=== PATIENT | male | born 1950 | race Two or more races ===

== ENCOUNTER 2020-06-25 08:46 | Outpatient (REF) | payer MEDICARE, MEDICAID, SELFPAY ==
[2020-06-25 11:19] LABS: Hematocrit 39.4 % (42-52); Mean Corpuscular Hemoglobin 31.9 pg (27.0-33.0); Mean Corpuscular Volume 96.8 fL (80-98); Mean Platelet Volume 11.6 fL (9.4-12.4); Platelet Count 237 X10*3/uL (160-400); Red Blood Count 4.07 X10*6/uL (4.60-5.80); Red Cell Distribution Width 11.8 % (11.0-16.0)
[2020-06-25 12:03] LABS: Alanine Aminotransferase 21 U/L (0-40); Aspartate Amino Transferase 18 U/L (5-37); Cholesterol 117 mg/dL; Ferritin 216 ng/mL (20-250); HDL Cholesterol 36 mg/dL; LDL Cholesterol Calculated 68 mg/dl; Triglycerides 67 mg/dL
== END 2020-06-25 08:47 | disposition home or self-care (01) ==
LOC: HO.HMGCLDS 08:46
PROVIDERS: PCP Internal Medicine; Visit Provider Internal Medicine
DX: J31.0 Chronic rhinitis (principal); I25.10 Atherosclerotic heart disease of native coronary artery without angina pectoris; D50.9 Iron deficiency anemia, unspecified; I25.2 Old myocardial infarction
CPT/HCPCS: 36415; 80061; 82728; 84450; 84460; 85027

== ENCOUNTER 2020-12-24 08:40 | Outpatient (REF) | payer MEDICARE, MEDICAID, SELFPAY ==
[2020-12-24 11:18] LABS: MANUAL DIFF FLAG NO
[2020-12-24 11:41] LABS: Basophils Absolute Auto 0.1 X10*3/uL (0.0-0.2); Basophils Percent Auto 0.9 % (0-2); Eosinophils Absolute Auto 0.1 X10*3/uL (0.0-0.4); Eosinophils Percent Auto 2.1 % (0-4); Hematocrit 37.9 % (42-52); Hemoglobin 12.6 g/dl (14.0-18.0); Imm Gran Abs Auto 0.02 X10*3/uL (0.00-0.03); Imm Gran Pct Auto 0.3 % (0.0-0.4); Lymphocytes Absolute Auto 1.8 X10*3/uL (1.2-4.9); Lymphocytes Percent Auto 31.5 % (20-40); Mean Corpuscular HGB Conc 33.2 g/dl (31.0-36.0); Mean Corpuscular Hemoglobin 32.1 pg (27.0-33.0); Mean Corpuscular Volume 96.7 fL (80-98); Mean Platelet Volume 11.7 fL (9.4-12.4); Monocytes Absolute Auto 0.6 X10*3/uL (0.1-1.2); Monocytes Percent Auto 10.6 % (2-11); Neutrophils Absolute Auto 3.2 X10*3/uL (2.0-8.3); Neutrophils Percent Auto 54.6 % (45-73); Platelet Count 204 X10*3/uL (160-400); Red Blood Count 3.92 X10*6/uL (4.60-5.80); Red Cell Distribution Width 12.1 % (11.0-16.0); White Blood Count 5.8 X10*3/uL (4.8-10.8)
[2020-12-24 12:01] LABS: Alanine Aminotransferase 26 U/L (0-40); Aspartate Amino Transferase 18 U/L (5-37); Cholesterol 120 mg/dL; HDL Cholesterol 37 mg/dL; LDL Cholesterol Calculated 71 mg/dl; Triglycerides 64 mg/dL
[2020-12-27 22:17] LABS: Hemoglobin 12.6 g/dL (13.2-17.1); MCH 31.8 pg (27.0-33.0); RBC 3.96 Million/uL (4.20-5.80); RDW 12.6 % (11.0-15.0)
== END 2020-12-24 08:41 | disposition home or self-care (01) ==
LOC: HO.HMGCLDS 08:40
PROVIDERS: PCP Internal Medicine; Visit Provider Internal Medicine
DX: D64.9 Anemia, unspecified (principal); E78.5 Hyperlipidemia, unspecified
CPT/HCPCS: 36415; 80061; 83020; 84450; 84460; 85014; 85018; 85025; 85041

== ENCOUNTER 2022-04-12 09:13 | Outpatient (REF) | payer MEDICARE, MEDICAID, SELFPAY ==
[2022-04-12 11:17] LABS: MANUAL DIFF FLAG NO
[2022-04-12 11:37] LABS: Basophils Absolute Auto 0.1 X10*3/uL (0.0-0.2); Basophils Percent Auto 0.9 % (0-2); Eosinophils Absolute Auto 0.1 X10*3/uL (0.0-0.4); Eosinophils Percent Auto 2.3 % (0-4); Hematocrit 38.3 % (42.0-52.0); Hemoglobin 12.5 g/dl (14.0-18.0); Imm Gran Abs Auto 0.02 X10*3/uL (0.00-0.03); Imm Gran Pct Auto 0.3 % (0.0-0.4); Lymphocytes Absolute Auto 2.1 X10*3/uL (1.2-4.9); Lymphocytes Percent Auto 36.3 % (20-40); Mean Corpuscular HGB Conc 32.6 g/dl (31.0-36.0); Mean Corpuscular Hemoglobin 31.6 pg (27.0-33.0); Mean Platelet Volume 11.6 fL (9.4-12.4); Monocytes Absolute Auto 0.6 X10*3/uL (0.1-1.2); Monocytes Percent Auto 11.1 % (2-11); Neutrophils Absolute Auto 2.8 x10*3/uL (2.0-8.3); Neutrophils Percent Auto 49.1 % (45-73); Platelet Count 245 X10*3/uL (160-400); Red Blood Count 3.95 X10*6/uL (4.60-5.80); White Blood Count 5.8 X10*3/uL (4.8-10.8)
[2022-04-12 12:11] LABS: Alanine Aminotransferase 34 U/L (0-40); Anion Gap 10 (12-20); Aspartate Amino Transferase 22 U/L (5-37); Blood Urea Nitrogen 18 mg/dL (9-16); Calcium 9.3 mg/dL (8.4-10.2); Carbon Dioxide 30 mmol/L (22-29); Chloride 105 mmol/L (96-108); Cholesterol 103 mg/dL; Estimated Glomerular Filt Rate > 60; Glucose Fasting 111 mg/dL (60-99); HDL Cholesterol 29 mg/dL; LDL Cholesterol Calculated 59 mg/dl; Potassium 4.7 mmol/L (3.3-5.1); Sodium 140 mmol/L (135-145); Triglycerides 79 mg/dL; Vitamin D 25-OH Total 46.9 ng/mL (>30)
== END 2022-04-12 09:14 | disposition home or self-care (01) ==
LOC: HO.HMGCLDS 09:13
PROVIDERS: PCP Internal Medicine; Visit Provider Internal Medicine
DX: D50.9 Iron deficiency anemia, unspecified (principal); E78.5 Hyperlipidemia, unspecified
CPT/HCPCS: 36415; 80048; 80061; 82306; 84450; 84460; 85025

== ENCOUNTER 2022-10-10 09:09 | Outpatient (REF) | payer MEDICARE, MEDICAID, SELFPAY ==
[2022-10-10 11:14] LABS: MANUAL DIFF FLAG NO
[2022-10-10 11:34] LABS: Basophils Absolute Auto 0.1 X10*3/uL (0.0-0.2); Basophils Percent Auto 0.8 % (0-2); Eosinophils Absolute Auto 0.1 X10*3/uL (0.0-0.4); Eosinophils Percent Auto 1.7 % (0-4); Hematocrit 36.5 % (42.0-52.0); Hemoglobin 12.2 g/dl (14.0-18.0); Imm Gran Abs Auto 0.02 X10*3/uL (0.00-0.03); Imm Gran Pct Auto 0.3 % (0.0-0.4); Lymphocytes Absolute Auto 1.9 X10*3/uL (1.2-4.9); Lymphocytes Percent Auto 26.4 % (20-40); Mean Corpuscular HGB Conc 33.4 g/dl (31.0-36.0); Mean Corpuscular Hemoglobin 32.1 pg (27.0-33.0); Mean Corpuscular Volume 96.1 fL (80.0-98.0); Mean Platelet Volume 11.6 fL (9.4-12.4); Monocytes Absolute Auto 0.8 X10*3/uL (0.1-1.2); Neutrophils Absolute Auto 4.3 x10*3/uL (2.0-8.3); Neutrophils Percent Auto 59.8 % (45-73); Platelet Count 254 X10*3/uL (160-400); Red Cell Distribution Width 11.8 % (11.0-16.0); White Blood Count 7.2 X10*3/uL (4.8-10.8)
[2022-10-10 12:04] LABS: Alanine Aminotransferase 32 U/L (0-40); Anion Gap 9 (12-20); Aspartate Amino Transferase 23 U/L (5-37); Blood Urea Nitrogen 16 mg/dL (9-16); Calcium 9.2 mg/dL (8.4-10.2); Carbon Dioxide 27 mmol/L (22-29); Chloride 108 mmol/L (96-108); Cholesterol 91 mg/dL; Estimated Glomerular Filt Rate > 60; Glucose Fasting 104 mg/dL (60-99); HDL Cholesterol 32 mg/dL; Iron 85 mcg/dL (45-160); LDL Cholesterol Calculated 49 mg/dl; Percent Iron Saturation 37 % (15-50); Potassium 4.9 mmol/L (3.3-5.1); Sodium 139 mmol/L (135-145); Total Iron Binding Capacity 227 mcg/dL (228-428); Triglycerides 53 mg/dL; Unsaturated Iron Binding 142 ug/dL
[2022-10-10 12:23] LABS: PSA,Total (Free>4and<10) 1.87 ng/mL (0.00-4.00); Vitamin D 25-OH Total 49.8 ng/mL (>30)
== END 2022-10-10 09:10 | disposition home or self-care (01) ==
LOC: HO.HMGCLDS 09:09
PROVIDERS: PCP Internal Medicine; Visit Provider Internal Medicine
DX: Z12.5 Encounter for screening for malignant neoplasm of prostate (principal); D50.9 Iron deficiency anemia, unspecified; E78.5 Hyperlipidemia, unspecified; I25.10 Atherosclerotic heart disease of native coronary artery without angina pectoris; R73.01 Impaired fasting glucose; I10 Essential (primary) hypertension
CPT/HCPCS: 36415; 80048; 80061; 82306; 83540; 84153; 84450; 84460; 85025

== ENCOUNTER → 2022-11-01 07:50 | Outpatient (BNV) | payer MEDICARE, MEDICAID, SELFPAY | PROVIDERS: PCP Internal Medicine; Visit Provider Internal Medicine | DX: D64.9 Anemia, unspecified (principal) | CPT/HCPCS: 99203; 99213 ==

== ENCOUNTER 2023-03-23 08:48 | Outpatient (AMB) | payer MEDICARE, MEDICAID, SELFPAY ==
[2023-03-23 09:32] VITALS: BP 110/70; PULSE 74; TEMP 36.5; O2SAT 98; BMI 24.7
--- NOTE | 2023-03-23 09:32 | AM.OFFWIN_ITS ---
Intake Vital Signs 03/23/23 09:32 Height 5 ft 3 in Weight 139 lb 4 oz BMI 24.7 BP 110/70 Blood Pressure Location Rt brachial Position Sitting Pulse 74 Pulse Source Pulse Oximeter Temp 97.7 F Temp Source Temporal Artery Scan Pulse Oximetry (%) 98 Oxygen Delivery Method Room Air Intake Visit Reasons: EST/stuffy nose and congestion (lobby masked) Intake Note: pt is here for c.o stuffy nose and congestion Patient Tobacco Use Status: Never used Tobacco Allergies No Known Allergies Allergy (Verified 03/23/23 09:33) Do you need a note to return to daycare/school/sports/work: Yes HPI HPI Comments History of Present Illness Details This is a 72-year-old male who presents to the office today for sick visit. Patient complaining of sinus/nasal congestion, rhinorrhea, and productive cough with green-yellow sputum x 3 weeks. Patient and his deny any fevers or chills. He denies any chest pain or shortness of breath. He denies any abdominal pain or nausea/vomiting/diarrhea. [facility] Medical History (Updated 01/16/23 @ 11:53 by [employer] [place]) Anemia Essential hypertension Impaired fasting glucose CAD (coronary artery disease) Dyslipidemia Surgical History History of inguinal herniorrhaphy History of eye surgery History of cardiac catheterization Family History Father Myocardial infarction Daughter No problems noted. Daughter No problems noted. Sister No problems noted. Sister No problems noted. Sister No problems noted. Brother No problems noted. Brother No problems noted. Brother No problems noted. Brother No problems noted. Brother No problems noted. Brother No problems noted. Social History Household Members: Significant Other Housing: House Alcohol intake: never Patient Tobacco Use Status: Never used Tobacco e-Cigarette/Vaping Use: Never Used Second Hand Smoke Exposure: No service: No Current occupational status: retired Cognitive needs: No Hearing needs: No Vision needs: Yes Review of Systems Const All systems reviewed & are unremarkable except as noted in HPI and below Reports no additional complaints Eyes Reports no additional complaints ENT Reports no additional complaints Card Reports no additional complaints Resp Reports no additional complaints GI Reports no additional complaints Reports no additional complaints Musc Reports no additional complaints Skin/Breast Reports system reviewed and no additional complaints, except as documented Neuro Reports no additional complaints Psych Reports no additional complaints Endo Reports no additional complaints Jose Angel/Lymph Reports no additional complaints Aller/Immun Reports no additional complaints Physical Exam Vital Signs: Last Vital Signs Temp 97.7 F 03/23/23 09:32 Pulse 74 03/23/23 09:32 BP 110/70 03/23/23 09:32 Pulse Ox 98 03/23/23 09:32 Oxygen Delivery Method Room Air 03/23/23 09:32 BMI result Body Mass Index 24.7 Const Other: Vital signs reviewed. Constitutional: Non-toxic appearing. No acute distress. Well-developed and well-nourished. HEENT: Normocephalic and atraumatic. Tympanic membranes without erythema, edema, or bulging bilaterally. External auditory canals without erythema or edema bilaterally. Moist mucous membranes. No pharyngeal erythema or exudates. Skin: Warm and dry. No rashes or lesions noted. Neck: Full and painless range of motion. No cervical lymphadenopathy. Cardio: Regular rate and rhythm. No murmurs, gallops, or rubs. No lower extremity edema. No JVD. Pulmonary: No respiratory distress. No accessory muscle usage. Clear to auscultation bilaterally without wheezing, crackles, or rhonchi. Gastrointestinal: Soft, nontender, and nondistended in all 4 quadrants. Normoactive bowel sounds in all 4 quadrants. Genitourinary: No CVA tenderness. Musculoskeletal: Normal range of motion in joints throughout the body. No deformity or other signs of injury. Neuro: Alert and oriented x4. Cranial nerves 2-12 grossly intact. No focal deficits appreciated. Psych: Normal mood and affect. Assessment & Plan Assessment & Plan (1) Acute bacterial rhinosinusitis: Code(s): J01.90 - Acute sinusitis, unspecified; B96.89 - Other specified bacterial agents as the cause of diseases classified elsewhere Plan: This is a 72-year-old male presenting to the office complaining of persistent sinus congestion/rhinorrhea and productive cough x 3 weeks. Physical examination, his lungs are clear to auscultation bilaterally and he is overall nontoxic appearing. History and physical most consistent with an acute bacterial rhinosinusitis. Patient sent home on p.o. amoxicillin/clavulanate 875/125 mg twice daily x7 days. Recommended symptomatic management including rest, increased fluids, advil/tylenol for pain/fever, and over the counter throat lozenges/decongestants. Patient advised to follow up here or go to the emergency room for worsening/persistent symptoms such as shortness of breath, fever/chills, worsening sputum production, or hemoptysis. Patient verbalized understanding and is agreeable with the plan. Patient's was able to provide the history and translate for the patient. Medications: New amoxicillin-pot clavulanate 875-125 mg 1 tab PO BID 14 tabs 0RF Coding Level of Care Code Est Pt Level 3 (03628) Diagnoses Acute bacterial rhinosinusitis J01.90; B96.89
== END 2023-03-23 09:48 | disposition home or self-care (01) ==
PROVIDERS: PCP Internal Medicine; Visit Provider Physician Assistant Medical
DX: J01.90 Acute sinusitis, unspecified (principal); B96.89 Other specified bacterial agents as the cause of diseases classified elsewhere
CPT/HCPCS: 99213

== ENCOUNTER 2023-04-03 08:36 | Outpatient (REF) | payer MEDICARE, MEDICAID, SELFPAY ==
[2023-04-03 11:58] LABS: Alanine Aminotransferase 31 U/L (0-40); Anion Gap 9 (12-20); Aspartate Amino Transferase 25 U/L (5-37); Blood Urea Nitrogen 14 mg/dL (9-16); Calcium 9.4 mg/dL (8.4-10.2); Carbon Dioxide 28 mmol/L (22-29); Chloride 105 mmol/L (96-108); Cholesterol 111 mg/dL (<200); Estimated Glomerular Filt Rate > 60; Glucose Fasting 107 mg/dL (60-99); HDL Cholesterol 33 mg/dL (>40); LDL Cholesterol Calculated 58 mg/dL (<100); Potassium 4.8 mmol/L (3.3-5.1); Sodium 137 mmol/L (135-145); Triglycerides 100 mg/dL (<150)
== END 2023-04-03 08:37 | disposition home or self-care (01) ==
LOC: HO.HMGCLDS 08:36
PROVIDERS: PCP Internal Medicine; Visit Provider Internal Medicine
DX: I25.10 Atherosclerotic heart disease of native coronary artery without angina pectoris (principal); E78.5 Hyperlipidemia, unspecified; R73.01 Impaired fasting glucose; I10 Essential (primary) hypertension
CPT/HCPCS: 36415; 80048; 80061; 84450; 84460

== ENCOUNTER 2023-04-05 13:26 | Outpatient (AMB) | payer MEDICARE, MEDICAID, SELFPAY ==
[2023-04-05 13:39] VITALS: BP 90/52; PULSE 75; O2SAT 99; BMI 24.5
--- NOTE | 2023-04-05 13:39 | MHC.PC.OV ---
Vital Signs 04/05/23 13:39 Height 5 ft 3 in Weight 138 lb 2 oz BMI 24.5 BP 90/52 L Blood Pressure Location Rt brachial Position Sitting Pulse 75 Pulse Source Pulse Oximeter Pulse Oximetry (%) 99 Oxygen Delivery Method Room Air Intake Visit Reasons: 5M follow up lipids, htn, ifg Intake Note: Pt is here to follow up for his lab results Allergies No Known Allergies Allergy (Verified 04/10/23 09:32) Medication List - Last Reconciled 04/05/23 by Annmarie Deal MD albuterol sulfate 90 mcg/actuation 2 puffs inhalation Q6H PRN aspirin 325 mg PO DAILY atorvastatin 80 mg PO DAILY cholecalciferol (vitamin D3) (Vitamin D3) 25 mcg PO DAILY ferrous sulfate (FeroSul) 325 mg PO DAILY loratadine 10 mg PO DAILY metoprolol succinate ER 50 mg PO DAILY [id number] mcg (Centrum Silver Ultra Men's) 1 tab PO DAILY sacubitril-valsartan 24-26 mg (Entresto) 1 tab PO DAILY spironolactone 25 mg PO DAILY Tobacco use date assessed: 04/05/23 Fall risk assessment: No Falls in past year Last assessed Fall Risk: 04/05/23 Dental Screening Dental Screen Date: 04/05/23 Did you have a dental visit in the last 12 months?: Yes Did you have a dental problem in the last 6 months where you did not have access to dental care?: No Was dental information given to patient?: Patient has dentist HPI 5M follow up lipids, htn, ifg HPI Details 72-year-old male with hypertension, prediabetes, history of coronary artery disease s/p MS in 2016, has dyslipidemia, here today for his follow-up. He has been compliant with taking his medications currently taking atorvastatin 80 mg daily in addition to metoprolol succinate ER 50 mg daily and spironolactone 25 mg daily in addition to 225 mg of aspirin once a day. 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 He has been feeling well with no complaints at present time. Recent fasting labs showed results as follows below : Triglyceride 100 <150 mg/dL Desirable Triglyceride: less than 150 mg/dL Borderline High Triglyceride 150-199 mg/dL High Triglyceride: 200-499 mg/dL Very High Triglyceride: greater than or equal to 5OO mg/dL Cholesterol 111 <200 mg/dL Desirable Cholesterol: less than 200 mg/dL Borderline High Cholesterol: 200-239 mg/dL High Cholesterol: greater than 239 mg/dL LDL Calculated 58 <100 mg/dL Desirable LDL: less than 100 mg/dL Near Optimal/Above Optimal LDL: 110-129 mg/dL Borderline High LDL: 130-159 mg/dL High LDL: 160-189 mg/dL Very High LDL: greater than or equal to 190 mg/dL HDL 33 L >40 mg/dL [facility] Medical History (Updated 04/16/23 @ 01:20 by Annmarie Deal MD) History of ischemic cardiomyopathy History of MS (myocardial infarction) Chronic anemia Essential hypertension Impaired fasting glucose CAD (coronary artery disease) Dyslipidemia Surgical History (Updated 04/16/23 @ 01:22 by Annmarie Deal MD) History of permanent cardiac pacemaker placement History of inguinal herniorrhaphy History of eye surgery History of cardiac catheterization Family History Father Myocardial infarction Daughter No problems noted. Daughter No problems noted. Sister No problems noted. Sister No problems noted. Sister No problems noted. Brother No problems noted. Brother No problems noted. Brother No problems noted. Brother No problems noted. Brother No problems noted. Brother No problems noted. Social History Household Members: Significant Other Housing: House Alcohol intake: never Patient Tobacco Use Status: Never used Tobacco e-Cigarette/Vaping Use: Never Used Second Hand Smoke Exposure: No service: No Current occupational status: retired Cognitive needs: No Hearing needs: No Vision needs: Yes Questionnaire Thrive Questionnaire Date Thrive assessed: 10/12/22 ORTIZ-7 AMB Questionnaire ORTIZ-7 Date ORTIZ - 7 assessed: 10/12/22 Source: Developed by Drs. Juan Santoro, Janet Urias, Kervin Escalante and colleagues, with an educational missael from [employer]. Review of Systems Const Denies body aches, Denies fever(s), Denies headache(s), Reports malaise and Denies weakness Eyes Reports no additional complaints ENT Denies headache(s), Denies nasal congestion, Denies nasal discharge and Denies sore throat Card Denies chest pain, Denies palpitations and Denies dyspnea Resp Denies chest congestion, Denies cough, Denies dyspnea and Denies wheezing GI Denies abdominal pain, Denies melena, Denies hematochezia, Denies change in bowel habits and Denies heartburn Reports no additional complaints Musc Reports no additional complaints Skin/Breast Denies rash Neuro Denies headache(s) and Denies weakness Psych Reports no additional complaints Endo Denies palpitations Jose Angel/Lymph Denies easy bruising Aller/Immun Denies seasonal rhinorrhea and Denies wheezing Physical exam (Primary Care) Vital Signs: Last Vital Signs Pulse 75 04/05/23 13:39 BP 90/52 L 04/05/23 13:39 Pulse Ox 99 04/05/23 13:39 Oxygen Delivery Method Room Air 04/05/23 13:39 BMI result Body Mass Index 24.5 Tobacco/Smoking Status: Tobacco use Status Tobacco use date assessed 04/05/23 04/05/23 13:48 Patient Tobacco Use Status Never used Tobacco 04/05/23 13:40 e-Cigarette/Vaping Use Never Used 04/05/23 13:40 Thrive Assessment: Date of Thrive Assessment Date Thrive assessed 10/12/22 04/05/23 13:40 Const General: cooperative, comfortable and no acute distress Orientation/consciousness: patient oriented x3 Limitations: no limitations HENMT Ears: external ears normal, TM's normal bilaterally and EAC's normal General nose exam: Normal external nose present and No nasal discharge present Mouth: oropharynx normal and moist mucous membranes Eyes General: appearance normal, both eyes and all related structures Conjunctivae: conjunctivae normal Pupils: Equal, round and reactive pupils present EOM: EOMs intact bilaterally Neck Neck: Yes full ROM, Yes no lymphadenopathy and Yes supple Chest Chest palpation & inspection: Pacemaker present Resp Effort & Inspection: normal respiratory effort and able to speak in complete sentences Auscultation: clear to auscultation bilaterally Cardio Rate: regular rate Rhythm: regular rhythm Heart sounds: S1 normal heart sound present and S2 normal heart sound present GI Inspection: Yes normal to inspection Palpation (GI): Soft to palpation, nontender and no masses Auscultation: normal bowel sounds General: Yes no CVA tenderness Back/Spine/Pelvis Back: no CVA tenderness and No back tenderness Skin General skin exam: no rashes or lesions noted Neuro General: patient oriented x3, gait normal, tone normal, moves all extremities, Normal light touch and pain sensation and no focal motor deficits Cranial nerves: Yes Equal, round and reactive pupils present Cognition (Neuro): normal cognition Gait exam (Neuro): Normal gait present Motor exam (neuro): 5/5 motor strength present throughout Extrem General: Yes full ROM, Yes no joint enlargement, Yes no clubbing, cyanosis or edema, Yes no calf tenderness and Yes normal gait Results Reviewed Results Reviewed: ENTERED: 04/03/23 [facility] DR: ORDERED: Met Prof Fast, AST, ALT, Lipid Panel Test Result Flag Reference Site Sodium 137 135-145 mmol/L Potassium 4.8 3.3-5.1 mmol/L CL 105 96-108 mmol/L CO2 28 22-29 mmol/L Gap 9 L 12-20 BUN 14 9-16 mg/dL Creat 0.82 0.5-1.4 mg/dL EGFR > 60 NOTE: For -Hungarian individuals, multiply the result by 1.210. Chronic Kidney Disease: Estimated GFR < 60 mL/min/1.73m2 Severe Kidney Disease: Estimated GFR < 15 mL/min/1.73m2 FBS 107 H 60-99 mg/dL A fasting glucose from 100-125 mg/dl is considered impaired (pre-diabetes). CA 9.4 8.4-10.2 mg/dL AST (GOT) 25 5-37 U/L ALT (GPT) 31 0-40 U/L Triglyceride 100 <150 mg/dL Desirable Triglyceride: less than 150 mg/dL Borderline High Triglyceride 150-199 mg/dL High Triglyceride: 200-499 mg/dL Very High Triglyceride: greater than or equal to 5OO mg/dL Cholesterol 111 <200 mg/dL Desirable Cholesterol: less than 200 mg/dL Borderline High Cholesterol: 200-239 mg/dL High Cholesterol: greater than 239 mg/dL LDL Calculated 58 <100 mg/dL Desirable LDL: less than 100 mg/dL Near Optimal/Above Optimal LDL: 110-129 mg/dL Borderline High LDL: 130-159 mg/dL High LDL: 160-189 mg/dL Very High LDL: greater than or equal to 190 mg/dL HDL 33 L >40 mg/dL Desirable HDL: greater than 40 mg/dL Assessment and Plan Assessment & Plan (1) Essential hypertension: Code(s): I10 - Essential (primary) hypertension Plan: Blood pressure at goal of less than 130/80. Continue with current medication. Reinforced importance of following a low sodium diet, getting regular exercise, and lowering stress levels. (2) Impaired fasting glucose: Code(s): R73.01 - Impaired fasting glucose Plan: Your fasting blood sugars elevated above 100 mg/dL. Impaired glucose metabolism O2 at risk for developing diabetes mellitus type 2, as well as heart attack and stroke later on. Lifestyle changes at just weight loss, healthy eating habits, and regular exercise are important, and can prevent the progression to diabetes (3) Dyslipidemia: Code(s): E78.5 - Hyperlipidemia, unspecified Plan: Reviewed recent fasting lipid profile with patient with levels at goal . Continue with atorvastatin 80 mg daily , in addition to adherence to low-cholesterol diet and regular exercise, at least 30 minutes 3 to 4 times a week. Advised patient to make healthy food choices, eat more fruits, vegetables, whole grains, wild caught fish and low-fat dairy. Limit amount of meat and fried or fatty food products, as well as processed foods and fast foods. Coding Level of Care Code Est Pt Level 4 (07527) Diagnoses Essential hypertension I10 Impaired fasting glucose R73.01 Dyslipidemia E78.5
== END 2023-04-05 15:25 | disposition home or self-care (01) ==
LOC: HO.HMGC 13:26
PROVIDERS: PCP Internal Medicine; Visit Provider Internal Medicine
DX: I10 Essential (primary) hypertension (principal); R73.01 Impaired fasting glucose; E78.5 Hyperlipidemia, unspecified
CPT/HCPCS: 99214

== ENCOUNTER 2023-04-10 08:54 | Outpatient (AMB) | payer MEDICARE, MEDICAID, SELFPAY ==
--- NOTE | 2023-04-10 09:00 | MHC.PC.OV ---
Vital Signs 04/10/23 09:01 Height 5 ft 3 in Weight 137 lb BMI 24.3 BP 100/62 Blood Pressure Location Lt brachial Position Sitting Pulse 74 Pulse Source Pulse Oximeter Pulse Oximetry (%) 100 Oxygen Delivery Method Room Air Intake Visit Reasons: Pre Op per Toyin Intake Note: Pt is here for a pre-op for Vitrectomy of the left eye Allergies No Known Allergies Allergy (Verified 04/10/23 09:32) Medication List - Last Reconciled 04/10/23 by Annmarie Deal MD albuterol sulfate 90 mcg/actuation 2 puffs inhalation Q6H PRN aspirin 325 mg PO DAILY atorvastatin 80 mg PO DAILY cholecalciferol (vitamin D3) (Vitamin D3) 25 mcg PO DAILY ferrous sulfate (FeroSul) 325 mg PO DAILY loratadine 10 mg PO DAILY metoprolol succinate ER 50 mg PO DAILY [id number]-bqicsg [id number] mcg (Centrum Silver Ultra Men's) 1 tab PO DAILY sacubitril-valsartan 24-26 mg (Entresto) 1 tab PO DAILY spironolactone 25 mg PO DAILY Tobacco use date assessed: 04/10/23 Fall risk assessment: No Falls in past year Last assessed Fall Risk: 04/10/23 Dental Screening Dental Screen Date: 04/10/23 Did you have a dental visit in the last 12 months?: Yes Did you have a dental problem in the last 6 months where you did not have access to dental care?: No Was dental information given to patient?: Patient has dentist HPI Pre Op per Toyin HPI Details 72-year-old male with coronary artery disease s/p inferoposterior [place] in 2012 with [place] to proximal and mid RCA, history of ischemic cardiomyopathy treated medically in 2016, prediabetes, hypertension, dyslipidemia, chronic normocytic anemia and history of sinus node dysfunction s/p pacemaker placed December 2022,here today for preoperative exam for vitrectomy OS, scheduled on 05/09/2023, requested by Dr. David Arredondo. At present he has been feeling well, denies chest pain, shortness of breath, dizziness, palpitations, orthopnea, paroxysmal nocturnal dyspnea, dizziness, palpitations, he has not been walking outdoors for at least a mi and a half and has been feeling more energetic. [facility] [place] Medical History (Updated 04/16/23 @ 01:20 by Annmarie Deal MD) History of ischemic cardiomyopathy History of [place] (myocardial infarction) Chronic anemia Essential hypertension Impaired fasting glucose CAD (coronary artery disease) Dyslipidemia Surgical History (Updated 04/16/23 @ 01:22 by Annmarie Deal MD) History of permanent cardiac pacemaker placement History of inguinal herniorrhaphy History of eye surgery History of cardiac catheterization Family History Father Myocardial infarction Daughter No problems noted. Daughter No problems noted. Sister No problems noted. Sister No problems noted. Sister No problems noted. Brother No problems noted. Brother No problems noted. Brother No problems noted. Brother No problems noted. Brother No problems noted. Brother No problems noted. Social History Household Members: Significant Other Housing: House Alcohol intake: never Patient Tobacco Use Status: Never used Tobacco e-Cigarette/Vaping Use: Never Used Second Hand Smoke Exposure: No service: No Current occupational status: retired Cognitive needs: No Hearing needs: No Vision needs: Yes Questionnaire PHQ-9 Over the last 2 weeks, how often have you been bothered by any of the following problems? Depression Screening Interpretation: Negative Depression Screening Done: Yes Source: Developed by Drs. Juan Santoro, Kervin Donnelly and colleagues, with an educational missael from [employer]. Thrive Questionnaire Date Thrive assessed: 10/12/22 ORTIZ-7 AMB Questionnaire ORTIZ-7 Date ORTIZ - 7 assessed: 10/12/22 Source: Developed by Drs. Juan Santoro, Kervin Donnelly and colleagues, with an educational missael from [employer]. Review of Systems Const Denies body aches, Denies fever(s), Denies headache(s), Reports malaise and Denies weakness Eyes Reports no additional complaints ENT Denies headache(s), Denies nasal congestion, Denies nasal discharge and Denies sore throat Card Denies chest pain, Denies palpitations and Denies dyspnea Resp Denies chest congestion, Denies cough, Denies dyspnea and Denies wheezing GI Denies abdominal pain, Denies melena, Denies hematochezia, Denies change in bowel habits and Denies heartburn Reports no additional complaints Musc Reports no additional complaints Skin/Breast Denies rash Neuro Denies headache(s) and Denies weakness Psych Reports no additional complaints Endo Denies palpitations Jose Angel/Lymph Denies easy bruising Aller/Immun Denies seasonal rhinorrhea and Denies wheezing Physical exam (Primary Care) Vital Signs: Last Vital Signs Pulse 74 04/10/23 09:01 BP 100/62 04/10/23 09:01 Pulse Ox 100 04/10/23 09:01 Oxygen Delivery Method Room Air 04/10/23 09:01 BMI result Body Mass Index 24.3 Tobacco/Smoking Status: Tobacco use Status Tobacco use date assessed 04/10/23 04/10/23 09:15 Patient Tobacco Use Status Never used Tobacco 04/10/23 09:02 e-Cigarette/Vaping Use Never Used 04/10/23 09:02 Depression Screening Interpretation: Negative Thrive Assessment: Date of Thrive Assessment Date Thrive assessed 10/12/22 04/10/23 09:02 Const General: cooperative, comfortable and no acute distress Orientation/consciousness: patient oriented x3 Limitations: no limitations HENMT Ears: external ears normal, TM's normal bilaterally and EAC's normal General nose exam: Normal external nose present and No nasal discharge present Mouth: oropharynx normal and moist mucous membranes Eyes General: appearance normal, both eyes and all related structures Conjunctivae: conjunctivae normal Pupils: Equal, round and reactive pupils present EOM: EOMs intact bilaterally Neck Neck: Yes full ROM, Yes no lymphadenopathy and Yes supple Resp Effort & Inspection: normal respiratory effort and able to speak in complete sentences Auscultation: clear to auscultation bilaterally Cardio Rate: regular rate Rhythm: regular rhythm Heart sounds: S1 normal heart sound present and S2 normal heart sound present GI Inspection: Yes normal to inspection Palpation (GI): Soft to palpation, nontender and no masses Auscultation: normal bowel sounds General: Yes no CVA tenderness Back/Spine/Pelvis Back: no CVA tenderness and No back tenderness Skin General skin exam: no rashes or lesions noted Neuro General: patient oriented x3, gait normal, tone normal, moves all extremities, Normal light touch and pain sensation and no focal motor deficits Cranial nerves: Yes Equal, round and reactive pupils present Cognition (Neuro): normal cognition Gait exam (Neuro): Normal gait present Motor exam (neuro): 5/5 motor strength present throughout Extrem General: Yes full ROM, Yes no joint enlargement, Yes no clubbing, cyanosis or edema, Yes no calf tenderness and Yes normal gait Psych Appearance: grossly normal and well kempt Mental Status: mental status grossly normal Speech and movement: Normal speech and movement present Affect: normal affect Attitude: cooperative Thought process: Normal thought process present Thought content: Normal thought content present Results Reviewed Results Reviewed: Name: Kelton Salas Age/Sex: 72/M : 1950 Unit#: [id number] Attend Dr: Annmarie Deal MD Re04/03/23 Status: DEP REF Location: [facility] Disch: SPEC : [id number] AKHIL: 04/03/23 STATUS: COMP REQ : [id number] RECD: 04/03/[address]: Annmarie Deal MD COMP: 04/03/23 ENTERED: 04/03/[address] [facility] [address]: ORDERED: Met Prof Fast, AST, ALT, Lipid Panel Test Result Flag Reference Site Sodium 137 135-145 mmol/L Potassium 4.8 3.3-5.1 mmol/L CL 105 96-108 mmol/L CO2 28 22-29 mmol/L Gap 9 L 12-20 BUN 14 9-16 mg/dL Creat 0.82 0.5-1.4 mg/dL EGFR > 60 NOTE: For -[place] individuals, multiply the result by 1.210. Chronic Kidney Disease: Estimated GFR < 60 mL/min/1.73m2 Severe Kidney Disease: Estimated GFR < 15 mL/min/1.73m2 FBS 107 H 60-99 mg/dL A fasting glucose from 100-125 mg/dl is considered impaired (pre-diabetes). CA 9.4 8.4-10.2 mg/dL AST (GOT) 25 5-37 U/L ALT (GPT) 31 0-40 U/L Triglyceride 100 <150 mg/dL Desirable Triglyceride: less than 150 mg/dL Borderline High Triglyceride 150-199 mg/dL High Triglyceride: 200-499 mg/dL Very High Triglyceride: greater than or equal to 5OO mg/dL Cholesterol 111 <200 mg/dL Desirable Cholesterol: less than 200 mg/dL Borderline High Cholesterol: 200-239 mg/dL High Cholesterol: greater than 239 mg/dL LDL Calculated 58 <100 mg/dL Desirable LDL: less than 100 mg/dL Near Optimal/Above Optimal LDL: 110-129 mg/dL Borderline High LDL: 130-159 mg/dL High LDL: 160-189 mg/dL Very High LDL: greater than or equal to 190 mg/dL HDL 33 L >40 mg/dL Desirable HDL: greater than 40 mg/dL Note: This HDL assay may give artificially low results in patients with liver disease. Assessment and Plan Assessment & Plan (1) Preoperative examination: Code(s): Z01.818 - Encounter for other preprocedural examination Plan: Pt is a 72 year old male here for pre-op clearance for left vitrectomy, on 05/09/[address] Arredondo. Pt has been seen by cardiology for cardiac clearance. He does not have any pulmonary or cardiac symptoms. Pre-operative exam is unremarkable.. He had recent fasting labs and EKG done. Patient with low cardiac risk index for proposed surgery (2) Essential hypertension: Code(s): I10 - Essential (primary) hypertension Plan: Blood pressure at goal of less than 130/80. Continue with current medication. Reinforced importance of following a low sodium diet, getting regular exercise, and lowering stress levels. (3) History of ischemic cardiomyopathy: Code(s): Z86.79 - Personal history of other diseases of the circulatory system Plan: Currently on Entresto, metoprolol, , and spironolactone. Currently followed by [facility] cardiology (4) Impaired fasting glucose: Code(s): R73.01 - Impaired fasting glucose Plan: Your fasting blood sugars elevated above 100 mg/dL. Impaired glucose metabolism O2 at risk for developing diabetes mellitus type 2, as well as heart attack and stroke later on. Lifestyle changes at just weight loss, healthy eating habits, and regular exercise are important, and can prevent the progression to diabetes (5) CAD (coronary artery disease): Code(s): I25.10 - Atherosclerotic heart disease of [place] coronary artery without angina pectoris Qualifiers: Coronary Disease-Associated Artery/Lesion type: [place] artery [place] vs. transplanted heart: [place] heart Associated angina: without angina Qualified Code(s): I25.10 - Atherosclerotic heart disease of [place] coronary artery without angina pectoris Plan: Continued on aspirin 325 mg once a day and metoprolol succinate ER 50 mg daily (6) Dyslipidemia: Code(s): E78.5 - Hyperlipidemia, unspecified Plan: Reviewed recent fasting lipid profile with patient with levels at goal . Continue with atorvastatin 80 mg daily , in addition to adherence to low-cholesterol diet and regular exercise, at least 30 minutes 3 to 4 times a week. Advised patient to make healthy food choices, eat more fruits, vegetables, whole grains, wild caught fish and low-fat dairy. Limit amount of meat and fried or fatty food products, as well as processed foods and fast foods. Follow-up scheduled with repeat fasting lipid panel in months. (7) Chronic anemia: Code(s): D64.9 - Anemia, unspecified Plan: No further treatment at present time, already been evaluated by Hematology, currently up-to-date on screening colonoscopy. He has no ongoing symptoms to suggest underlying malignancy. Given the chronicity of anemia without significant decline over the years, this is probably benign and can be monitored for now. (8) History of permanent cardiac pacemaker placement: Comment: 01/05/[address] Angel cano due to sinus bradycardia with pauses Code(s): Z95.0 - Presence of cardiac pacemaker Plan: Currently followed by [facility] cardiology Coding Level of Care Code Est Pt Level 4 (91096) Diagnoses Preoperative examination Z01.818 Essential hypertension I10 History of ischemic cardiomyopathy Z86.79 Impaired fasting glucose R73.01 Coronary artery disease involving [place] coronary artery of [place] heart without angina pectoris I25.10 Coronary Disease-Associated Artery/Lesion type: [place] artery [place] vs. transplanted heart: [place] heart Associated angina: without angina Dyslipidemia E78.5 Chronic anemia D64.9 History of permanent cardiac pacemaker placement Z95.0
[2023-04-10 09:01] VITALS: BP 100/62; PULSE 74; O2SAT 100; BMI 24.3
== END 2023-04-10 09:55 | disposition home or self-care (01) ==
PROVIDERS: PCP Internal Medicine; Visit Provider Internal Medicine
DX: Z01.818 Encounter for other preprocedural examination (principal); I10 Essential (primary) hypertension; Z86.79 Personal history of other diseases of the circulatory system; R73.01 Impaired fasting glucose; I25.10 Atherosclerotic heart disease of native coronary artery without angina pectoris; E78.5 Hyperlipidemia, unspecified; D64.9 Anemia, unspecified; Z95.0 Presence of cardiac pacemaker
CPT/HCPCS: 99214

== ENCOUNTER 2024-02-29 11:52 | Outpatient (REF) | payer MEDICARE, MEDICAID, SELFPAY ==
[2024-03-01 09:50] LABS: Adenovirus PCR Not Detected (Not Detect.); Bordetella parapertussis PCR Not Detected (Not Detect.); Bordetella pertussis PCR Not Detected (Not Detect.); Chlamydia pneumoniae PCR Not Detected (Not Detect.); Coronavirus 229E PCR Not Detected (Not Detect.); Coronavirus HKU1 PCR Not Detected (Not Detect.); Coronavirus NL63 PCR Not Detected (Not Detect.); Coronavirus OC43 PCR Not Detected (Not Detect.); Human metapneumovirus PCR Not Detected (Not Detect.); Influenza A PCR Not Detected (Not Detect.); Influenza B PCR Not Detected (Not Detect.); Mycoplasma pneumoniae PCR Not Detected (Not Detect.); Parainfluenza 1 PCR Not Detected (Not Detect.); Parainfluenza 2 PCR Not Detected (Not Detect.); Parainfluenza 3 PCR Not Detected (Not Detect.); Parainfluenza 4 PCR Not Detected (Not Detect.); RSV PCR Not Detected (Not Detect.); Rhino/Enterovirus PCR Not Detected (Not Detect.)
[2024-03-01 10:27] LABS: SARS-CoV-2 PCR Not Detected (Not Detect.)
== END 2024-02-29 11:53 | disposition home or self-care (01) ==
LOC: HO.LAB 11:52
PROVIDERS: PCP Internal Medicine; Visit Provider Physician Assistant
DX: J06.9 Acute upper respiratory infection, unspecified (principal); R05.9 Cough, unspecified; R68.89 Other general symptoms and signs; R51.9 Headache, unspecified; I10 Essential (primary) hypertension
CPT/HCPCS: 87633; 99212

== ENCOUNTER 2024-02-29 11:52 | Outpatient (AMB) | payer MEDICARE, MEDICAID, SELFPAY ==
--- NOTE | 2024-02-29 12:46 | AM.OFFWIN_ITS ---
Intake Vital Signs 02/29/24 12:47 Height 5 ft 3 in Weight 139 lb BMI 24.6 BP 110/68 Blood Pressure Location Rt brachial Position Sitting Pulse 80 Pulse Source Pulse Oximeter Temp 98.1 F Temp Source Oral Pulse Oximetry (%) 97 Oxygen Delivery Method Room Air Intake Visit Reasons: EP sinus, coughing, sore thoat Intake Note: sinus pressure, loss of voice, cough, mucus which has been going for about 2 days Patient Tobacco Use Status: Never used Tobacco Allergies No Known Allergies Allergy (Verified 02/29/24 12:48) Do you need a note to return to daycare/school/sports/work: No HPI HPI Comments History of Present Illness Details Patient is a 73-year-old male complaining of 2 days of a productive cough with yellow mucus and head congestion. He denies any fevers, shortness of breath, headaches, sinus pain or ear pain. He denies a history of asthma or COPD. He did not test at home for COVID. He has been using Robitussin without much improvement in his symptoms. His tells me the cough is keeping him up at night. [facility] Medical History (Updated 02/29/24 @ 13:11 by Tonya Bentley PA-C) History of ischemic cardiomyopathy History of [place] (myocardial infarction) Chronic anemia Essential hypertension Impaired fasting glucose CAD (coronary artery disease) Dyslipidemia Surgical History (Updated 05/29/23 @ 10:18 by Rosalia Jung MD) History of permanent cardiac pacemaker placement History of inguinal herniorrhaphy History of eye surgery History of cardiac catheterization Family History Father Myocardial infarction Daughter No problems noted. Daughter No problems noted. Sister No problems noted. Sister No problems noted. Sister No problems noted. Brother No problems noted. Brother No problems noted. Brother No problems noted. Brother No problems noted. Brother No problems noted. Brother No problems noted. Social History Household Members: Significant Other Housing: House Alcohol intake: never Patient Tobacco Use Status: Never used Tobacco e-Cigarette/Vaping Use: Never Used Second Hand Smoke Exposure: No service: No Current occupational status: retired Cognitive needs: No Hearing needs: No Vision needs: Yes Review of Systems Const All systems reviewed & are unremarkable except as noted in HPI and below Physical Exam Vital Signs: Last Vital Signs Temp 98.1 F 02/29/24 12:47 Pulse 80 02/29/24 12:47 BP 110/68 02/29/24 12:47 Pulse Ox 97 02/29/24 12:47 Oxygen Delivery Method Room Air 02/29/24 12:47 BMI result Body Mass Index 24.6 Const General: cooperative, healthy appearing, comfortable and no acute distress Orientation/consciousness: patient oriented x3 Limitations: no limitations HEENT Head: Yes normal to inspection Ears: hearing grossly normal bilaterally, external ears normal and TM's normal bilaterally General nose exam: Normal external nose present, Normal nares present and No nasal discharge present Face and sinus: Yes normal facial exam and Yes sinuses nontender Mouth: Normal oral and palatal mucosa present and moist mucous membranes Throat: Yes tonsils normal, Yes uvula midline and Yes posterior oropharynx abnormal (Erythema) Eyes General: appearance normal, both eyes and all related structures Neck Neck: Yes normal visual inspection Resp Effort & Inspection: normal respiratory effort, able to speak in complete sentences, no respiratory distress, not tachypneic, no tripod positioning and no use of accessory muscles Auscultation: clear to auscultation bilaterally Cardio Rate: regular rate Rhythm: regular rhythm Heart sounds: normal S1 and S2 Skin General skin exam: no rashes or lesions noted Neuro General: patient oriented x3 Extrem General: Yes normal to inspection and Yes no clubbing, cyanosis or edema Assessment & Plan Assessment & Plan (1) URI (upper respiratory infection): Code(s): J06.9 - Acute upper respiratory infection, unspecified Qualifiers: URI type: unspecified URI Qualified Code(s): J06.9 - Acute upper respiratory infection, unspecified Plan: Vital signs are stable, patient well-appearing, lung sounds are clear, no indic ation for a chest x-ray, I did send a respiratory pathogen panel. And I will send some codeine cough syrup so the patient can get some sleep at night. Recommended continuing with Robitussin in ceot-sou-ensuamt medications to treat his symptoms. Plan See above Orders: Orders Resp Pathogen Panel - [facility] Today J06.9 - Acute upper respiratory infection, unspecified Medications: New codeine-guaifenesin 10-100 mg/5 mL 10 mL PO Q4-6H PRN 120 mL 0RF cold symptoms Coding Level of Care Code Est Pt Level 3 (49392) Diagnoses Upper respiratory tract infection, unspecified type J06.9 URI type: unspecified URI
[2024-02-29 12:47] VITALS: BP 110/68; PULSE 80; TEMP 36.7; O2SAT 97; BMI 24.6
== END 2024-02-29 13:10 | disposition home or self-care (01) ==
PROVIDERS: PCP Internal Medicine; Visit Provider Physician Assistant
DX: J06.9 Acute upper respiratory infection, unspecified (principal)

== ENCOUNTER 2024-06-02 11:27 | Outpatient (AMB) | payer MEDICARE, MEDICAID, SELFPAY ==
--- NOTE | 2024-06-02 11:54 | A.OFFVIS_ITS ---
Intake Vital Signs 06/02/24 12:09 Height 5 ft 3 in Weight 140 lb BMI 24.8 BP 104/60 Blood Pressure Location Lt brachial Position Sitting Respiration 16 Pulse 69 Pulse Source Pulse Oximeter Temp 98.0 F Temp Source Oral Pulse Oximetry (%) 98 Oxygen Delivery Method Room Air Intake Visit Reasons: AWV G0438 Intake Note: Pt is here today for his AWV: Last colonoscopy 03/01/16 Allergies No Known Allergies Allergy (Verified 06/02/24 12:36) Medication List - Last Reconciled 06/02/24 by Annmarie Deal MD aspirin 325 mg PO DAILY atorvastatin 80 mg PO DAILY cholecalciferol (vitamin D3) (Vitamin D3) 25 mcg PO DAILY codeine-guaifenesin 10-100 mg/5 mL 10 mL PO Q4-6H PRN loratadine 10 mg PO DAILY metoprolol succinate ER 50 mg PO DAILY gj-[id number]-[id number]-nrdibta-nlelii [id number] mcg (Centrum Silver Ultra Men's) 1 tab PO DAILY sacubitril-valsartan 24-26 mg (Entresto) 1 tab PO DAILY spironolactone 25 mg PO DAILY HPI AWV G0438 HPI Details AWV ? 74 year old male with history coronary artery disease, history of isch emic cardiomyopathy, status post pacemaker placement, chronic anemia, hypertension, impaired fasting glucose and dyslipidemia, presents for his? Annual Wellness Visit, initial visit.? He is up-to-date with his screening colonoscopy done by Dr. Mullen last 03/01/2016, due again next year. Last PSA level drawn 10/10/2022 was within normal limits, last lipid panel and fasting blood sugar Romario 04/03/2023 showed normal lipids except for low HDL cholesterol at 33 mg/dL and fasting glucose in the prediabetic range at 107 mg/dL. He is up-to-date with his flu vaccine, Tdap pneumonia vaccination, but has not yet had his Shingrix vaccination and does not want to get a COVID booster. ? Medical / Social History Reviewed? Past Medical History ?Yes . ? [place]ak of Care / Care Team list updated ?Yes . ? Surgical/Hospitalization History ?Yes . ? Current Medications (including OTC and supplements) ?Yes . ? Family History ?Yes . ? Tobacco Control form ?Yes . ? AUDIT-C (Alcohol use) form ?Yes . ? Illicit drug use in Social History ?Yes . ? Current diagnosis of depression? ?No ? Appropriate PHQ2/PHQ9 completed ?Yes . ? Data entered by ?[employer] and reviewed by provider ? Fall Risk ? Fall History? Have you had any falls with injury in the past year? ?No . ? Have you had two or more falls in the past year? ?No . ? Fall Risk Assessment: ?No falls in the past year . ? HRA filled out by the patient, reviewed by Provider and scanned. ? AWV ? Balance? Romberg negative ? Tandem walk ?Yes . ? Walk and Turn ?Yes . ? Rise from sit to stand ?Yes . ?Vision? Corrective lens ?history of cataract surgery with intra-ocular lens placed ? Vision screen ? Up-to-date, sees Dr Valdez ?Hearing? Whisper test ?pass . ?Written Plan?Completed. See Patient Documents.? HPI Comments History of Present Illness Details Patient has also been complaining of breast pain mainly in retroareolar area, which has been present now for the last several weeks. Denies any history of trauma, no nipple discharge He is also here for follow-up on his lipids, currently on atorvastatin 80 mg daily, and follow-up on hypertension and anemia. Has been feeling well, with no complaints at present time [facility] Medical History Nipple pain History of ischemic cardiomyopathy History of CT (myocardial infarction) Chronic anemia Essential hypertension Impaired fasting glucose CAD (coronary artery disease) Dyslipidemia Surgical History History of permanent cardiac pacemaker placement History of inguinal herniorrhaphy History of eye surgery History of cardiac catheterization Family History Father Myocardial infarction Daughter No problems noted. Daughter No problems noted. Sister No problems noted. Sister No problems noted. Sister No problems noted. Brother No problems noted. Brother No problems noted. Brother No problems noted. Brother No problems noted. Brother No problems noted. Brother No problems noted. Social History Household Members: Significant Other Housing: House Alcohol intake: never Patient Tobacco Use Status: Never used Tobacco e-Cigarette/Vaping Use: Never Used Second Hand Smoke Exposure: No service: No Current occupational status: retired Cognitive needs: No Hearing needs: No Vision needs: Yes Questionnaire Medicare Wellness Checkup [age] What gender do you identify with?: male During the past 4 weeks, how much have you been bothered by emotional problems such as feeling anxious, depressed, irritable, sad or downhearted, and blue?: not at all During the past 4 weeks, has your physical & emotional health limited your social activities with family, friends, neighbors, or groups?: not at all During the past 4 weeks, how much bodily pain have you generally had?: very mild pain During the past 4 weeks, was someone available to help you if you needed & wanted help?: yes, as much as I wanted During the past 4 weeks, what was the hardest physical activity you could do for at least 2 minutes?: light Can you get to places out of walking distance without help? (For eg., can you travel alone on buses, taxis or drive your car?): Yes Can you go shopping for groceries or clothes without someone's help?: No Can you prepare your own meals?: No Can you do your housework without help?: No Because of any health problems, do you need the help of another person with your personal care needs such as eating, bathing, dressing or getting around the house?: No Can you handle your own money without help?: Yes During the past 4 weeks, how would you rate your health in general?: good During the past 4 weeks how have things been going for you?: pretty well Are you having difficulties driving your car?: no Do you always fasten your seat belt when you are in a car?: yes, usually During past 4 weeks, have you been bothered by the following: never: Problems using the telephone? and sometimes: Falling or dizzy when standing up, Sexual problems?, Trouble eating well?, Teeth or denture problems? and Tiredness or fatigue? Have you fallen 2 or more times in the past year?: No Are you afraid of falling?: No Are you a smoker?: no During the past 4 weeks, how many drinks of wine, beer, or other alcoholic beverages did you have?: no alcohol at all Do you exercise for about 20 minutes 3 or more times a week?: yes, most of the time Have you been given information to help with the following?: yes: Keeping track of your medications? and no: Hazards in your house that might hurt you? How often do you have trouble taking medicines the way you have been told to take them?: I always take medicine as prescribed How confident are you that you can control & manage most of your health problems?: very confident What is your race?: or origin or descent Mini Mental State Exam (MMSE) Orientation What is the (year) (season) (date) (day) (month)?: year (2024), season (Winter), date (06/02/2024), day (Sunday) and month (May) Where are we (state) (county) (town or city) (hospital) (floor)?: state ([place]), county ([place]), town or city ([place]) and hospital/clinic ([facility]) Score Score: 9 Activity of Daily Living Bathing - sponge bath, tub bath or shower: receives no assistance (gets in/out by self, if usual bathing means Dressing - getting clothes from closets & drawers, including inner/outer garments & fasteners.: gets clothes & gets completely dressed without help Toileting - going to the 'toilet room' for urine/bowel elimination & cleaning self/arranging clothes: goes to toilet room, cleans self, arranges clothes without help Transfer: moves in & out of bed and chair without help (may use support object) Continence: controls urination/bowel movements completely by self Feeding: feeds self without help Total Score: 0 Information obtained from: patient Using telephone: independent Traveling: needs assistance Shopping: needs assistance Preparing meals: needs assistance Housework: independent Taking medicine: independent Managing money: needs assistance PHQ-9 Over the last 2 weeks, how often have you been bothered by any of the following problems? 1. Little interest or pleasure in doing things: not at all 2. Feeling down, depressed, or hopeless: not at all 3. Trouble falling or staying asleep, or sleeping too much: not at all 4. Feeling tired or having little energy: not at all 5. Poor appetite or overeating: not at all 6. Feeling bad about yourself - or that you are a failure or have let yourself or your family down: not at all 7. Trouble concentrating on things, such as reading the newspaper or watching television: not at all 8. Moving or speaking so slowly that other people could have noticed. Or the opposite - being so fidgety or restless that you have been moving around a lot more than usual: not at all 9. Thoughts that you would be better off or of hurting yourself in some way: not at all Total score: 0 Depression Screening Interpretation: Negative Depression Screening Done: Yes 92456 - PHQ-9 Billing: Yes Source: Developed by Drs. Juan Santoro, Janet Urias, Kervin Escalante and colleagues, with an educational missael from [employer]. Review of Systems Const All systems reviewed & are unremarkable except as noted in HPI and below Denies body aches, Denies fever(s), Denies headache(s) and Denies weakness ENT Denies headache(s) and Denies nasal congestion Card Denies chest pain, Denies palpitations and Denies dyspnea Resp Denies chest congestion, Denies cough, Denies dyspnea and Denies wheezing GI Denies abdominal pain, Denies melena, Denies hematochezia, Denies change in bowel habits and Denies heartburn Musc Reports no additional complaints Neuro Denies headache(s) and Denies weakness Endo Denies palpitations Jose Angel/Lymph Denies easy bruising Aller/Immun Denies seasonal rhinorrhea and Denies wheezing Physical Exam Vital Signs: Last Vital Signs Temp 98.0 F 06/02/24 12:09 Pulse 69 06/02/24 12:09 Resp 16 06/02/24 12:09 BP 104/60 06/02/24 12:09 Pulse Ox 98 06/02/24 12:09 Oxygen Delivery Method Room Air 06/02/24 12:09 BMI result Body Mass Index 24.8 Const General: cooperative and no acute distress Orientation/consciousness: patient oriented x3 HEENT Head: Yes normal to inspection Ears: external ears normal Mouth: Normal oral and palatal mucosa present and moist mucous membranes Eyes General: appearance normal, both eyes and all related structures Neck Neck: Yes full ROM, Yes no lymphadenopathy and Yes supple Chest Other: Slightly lower Nina in both breasts, with fullness under both retroareolar areas noted, no abnormal nipple discharge Chest palpation & inspection: normal inspection of the chest Resp Effort & Inspection: normal respiratory effort and no respiratory distress Auscultation: clear to auscultation bilaterally Cardio Rate: regular rate Rhythm: regular rhythm Heart sounds: normal S1 and S2 Neuro General: patient oriented x3 Extrem General: Yes no clubbing, cyanosis or edema Assessment & Plan Assessment & Plan (1) Encounter for annual wellness exam in Medicare patient: Code(s): Z00.00 - Encounter for general adult medical examination without abnormal findings Plan: Medical wellness checklist reviewed, discussed with patient and and updated. Reminded to get his shingles vaccination, but does not want to get COVID booster. (2) Nipple pain: Code(s): N64.4 - Mastodynia Plan: Ultrasound of left and right breast ordered , may take ibuprofen as needed for pain control, will check testosterone levels (3) Dyslipidemia: Code(s): E78.5 - Hyperlipidemia, unspecified Plan: Fasting lipid panel ordered, currently on atorvastatin 80 mg daily (4) CAD (coronary artery disease): Code(s): I25.10 - Atherosclerotic heart disease of [place] coronary artery without angina pectoris Qualifiers: Associated angina: without angina Coronary Disease-Associated Artery/Lesion type: [place] artery [place] vs. transplanted heart: [place] heart Qualified Code(s): I25.10 - Atherosclerotic heart disease of [place] coronary artery without angina pectoris Plan: Continue aspirin 325 mg daily (5) Impaired fasting glucose: Code(s): R73.01 - Impaired fasting glucose Plan: Your previous fasting blood sugars were elevated above 100 mg/dL. Impaired glucose metabolism increases the risk for developing diabetes mellitus type 2, as well as heart attack and stroke later on. Lifestyle changes that promotes weight loss, healthy eating habits, and regular exercise are important, and can prevent the progression to diabetes (6) Essential hypertension: Code(s): I10 - Essential (primary) hypertension Plan: Currently on metoprolol succinate ER, Entresto and spironolactone (7) Chronic anemia: Code(s): D64.9 - Anemia, unspecified Plan: CBC ordered (8) Encounter for counseling regarding advance directives: Code(s): Z71.89 - Other specified counseling Plan: Initiated the conversation about Advanced Directives. Advanced Directives help patients prepare for current and future decisions about their medical treatment and place of care. Discussed with patient that it is a process where a patients current condition and prognosis are reviewed, their wishes for information regarding their illness are elicited, and likely medical dilemmas are presented and options discussed. MOLST and healthcare proxy form completed today. These forms can be amended as needed, reviewed yearly and make changes as needed Orders: Orders US breast LT complete 06/02/24 N64.4 - Mastodynia Lipid Panel 06/02/24 D64.9 - Anemia, unspecified, E78.5 - Hyperlipidemia, unspecified, I10 - Essential (primary) hypertension, I25.10 - Atherosclerotic heart disease of [place] coronary artery without angina pectoris, N62 - Hypertrophy of breast, N64.4 - Mastodynia, R73.01 - Impaired fasting glucose, Z00.00 - Encounter for general adult medical examination without abnormal findings, Z71.89 - Other specified counseling, Z95.0 - Presence of cardiac pacemaker Alanine Aminotransferase 06/02/24 D64.9 - Anemia, unspecified, E78.5 - Hyperlipidemia, unspecified, I10 - Essential (primary) hypertension, I25.10 - Atherosclerotic heart disease of [place] coronary artery without angina pectoris, N62 - Hypertrophy of breast, N64.4 - Mastodynia, R73.01 - Impaired fasting glucose, Z00.00 - Encounter for general adult medical examination without abnormal findings, Z71.89 - Other specified counseling, Z95.0 - Presence of cardiac pacemaker Basic Metabolic Panel Fasting 06/02/24 D64.9 - Anemia, unspecified, E78.5 - Hyperlipidemia, unspecified, I10 - Essential (primary) hypertension, I25.10 - Atherosclerotic heart disease of [place] coronary artery without angina pectoris, N62 - Hypertrophy of breast, N64.4 - Mastodynia, R73.01 - Impaired fasting glucose, Z00.00 - Encounter for general adult medical examination without abnormal findings, Z71.89 - Other specified counseling, Z95.0 - Presence of cardiac pacemaker Vitamin D 25-OH Total 06/02/24 D64.9 - Anemia, unspecified, E78.5 - Hyperlipidemia, unspecified, I10 - Essential (primary) hypertension, I25.10 - Atherosclerotic heart disease of [place] coronary artery without angina pectoris, N62 - Hypertrophy of breast, N64.4 - Mastodynia, R73.01 - Impaired fasting glucose, Z00.00 - Encounter for general adult medical examination without abnormal findings, Z71.89 - Other specified counseling, Z95.0 - Presence of cardiac pacemaker US breast RT complete 06/02/24 N64.4 - Mastodynia Hemoglobin A1c 06/02/24 D64.9 - Anemia, unspecified, E78.5 - Hyperlipidemia, unspecified, I10 - Essential (primary) hypertension, I25.10 - Atherosclerotic heart disease of [place] coronary artery without angina pectoris, N62 - Hypertrophy of breast, N64.4 - Mastodynia, R73.01 - Impaired fasting glucose, Z00.00 - Encounter for general adult medical examination without abnormal findings, Z71.89 - Other specified counseling, Z95.0 - Presence of cardiac pacemaker Aspartate Amino Transferase 06/02/24 D64.9 - Anemia, unspecified, E78.5 - Hyperlipidemia, unspecified, I10 - Essential (primary) hypertension, I25.10 - Atherosclerotic heart disease of [place] coronary artery without angina pectoris, N62 - Hypertrophy of breast, N64.4 - Mastodynia, R73.01 - Impaired fasting glucose, Z00.00 - Encounter for general adult medical examination without abnormal findings, Z71.89 - Other specified counseling, Z95.0 - Presence of card iac pacemaker Complete Blood Count Auto Diff 06/02/24 D64.9 - Anemia, unspecified, E78.5 - Hyperlipidemia, unspecified, I10 - Essential (primary) hypertension, I25.10 - Atherosclerotic heart disease of [place] coronary artery without angina pectoris, N62 - Hypertrophy of breast, N64.4 - Mastodynia, R73.01 - Impaired fasting glucose, Z00.00 - Encounter for general adult medical examination without abnormal findings, Z71.89 - Other specified counseling, Z95.0 - Presence of cardiac pacemaker TSH reflex Free T4 06/02/24 D64.9 - Anemia, unspecified, E78.5 - Hyperlipidemia, unspecified, I10 - Essential (primary) hypertension, I25.10 - Atherosclerotic heart disease of [place] coronary artery without angina pectoris, N62 - Hypertrophy of breast, N64.4 - Mastodynia, R73.01 - Impaired fasting glucose, Z00.00 - Encounter for general adult medical examination without abnormal findings, Z71.89 - Other specified counseling, Z95.0 - Presence of card iac pacemaker Testosterone, Free/Total 06/02/24 D64.9 - Anemia, unspecified, E78.5 - Hyperlipidemia, unspecified, I10 - Essential (primary) hypertension, I25.10 - Atherosclerotic heart disease of [place] coronary artery without angina pectoris, N62 - Hypertrophy of breast, N64.4 - Mastodynia, R73.01 - Impaired fasting glucose, Z00.00 - Encounter for general adult medical examination without abnormal findings, Z71.89 - Other specified counseling, Z95.0 - Presence of cardiac pacemaker Quality Reporting (2019) Depression/Bipolar (159/160/161/177) PHQ-9: Total score: 0 Coding Level of Care Code Medicare First (G0438) Est Pt Level 4 (79327) Diagnoses Encounter for annual wellness exam in Medicare patient Z00.00 Nipple pain N64.4 Dyslipidemia E78.5 Coronary artery disease involving [place] coronary artery of [place] heart without angina pectoris I25.10 Associated angina: without angina Coronary Disease-Associated Artery/Lesion type: [place] artery [place] vs. transplanted heart: [place] heart Impaired fasting glucose R73.01 Essential hypertension I10 Chronic anemia D64.9 Encounter for counseling regarding advance directives Z71.89 CPT Codes Advance Care Planning - Time spent: 16-45 minutes ([id number]) Additional Codes PHQ-9 - 09720 - PHQ-9 Billing: Yes ([id number]) Advance Care Planning Advance Care Planning discussion: Completed/Scanned Date of discussion: 06/02/24 Who was present: Patient and Forms completed: Health Care Proxy and MOLST Time spent: 16-45 minutes Actual minutes spent: 5
[2024-06-02 12:09] VITALS: BP 104/60; PULSE 69; RESP 16; TEMP 36.7; O2SAT 98; BMI 24.8
== END 2024-06-02 13:05 | disposition home or self-care (01) ==
PROVIDERS: PCP Internal Medicine; Visit Provider Internal Medicine
DX: Z00.00 Encounter for general adult medical examination without abnormal findings (principal); N64.4 Mastodynia; E78.5 Hyperlipidemia, unspecified; I25.10 Atherosclerotic heart disease of native coronary artery without angina pectoris; R73.01 Impaired fasting glucose; I10 Essential (primary) hypertension; D64.9 Anemia, unspecified; Z71.89 Other specified counseling

== ENCOUNTER → 2024-06-02 11:27 | Outpatient (BNVA) | payer MEDICARE, MEDICAID, SELFPAY | PROVIDERS: PCP Internal Medicine; Visit Provider Internal Medicine | DX: Z00.00 Encounter for general adult medical examination without abnormal findings (principal); N64.4 Mastodynia; E78.5 Hyperlipidemia, unspecified; I25.10 Atherosclerotic heart disease of native coronary artery without angina pectoris; R73.01 Impaired fasting glucose; I10 Essential (primary) hypertension; D64.9 Anemia, unspecified; Z71.89 Other specified counseling | CPT/HCPCS: 96127; 99212 ==

== ENCOUNTER 2024-07-08 10:48 | Outpatient (AMB) | payer MEDICARE, MEDICAID, SELFPAY ==
[2024-07-08 11:13] VITALS: BP 116/80; PULSE 72; TEMP 36.7; O2SAT 97
--- NOTE | 2024-07-08 11:13 | MHC.OFFWIV ---
Intake Vital Signs 07/08/24 11:13 Weight 144 lb BP 116/80 Blood Pressure Location Rt brachial Position Sitting Pulse 72 Pulse Source Pulse Oximeter Temp 98.0 F Temp Source Oral Pulse Oximetry (%) 97 Oxygen Delivery Method Room Air Intake Visit Reasons: EP Chest congestion, wheezing/cough Intake Note: Patient here for chest congestion, wheezing and cough that has been present for about 3 weeks. Patient Tobacco Use Status: Never used Tobacco Allergies No Known Allergies Allergy (Verified 07/08/24 11:16) Do you need a note to return to daycare/school/sports/work: No HPI HPI Comments History of Present Illness Details This is a 74-year-old male with a past medical history of hyperlipidemia, hypertension, coronary artery disease with pacemaker placement, ischemic cardiomyopathy presenting for evaluation of a cough with yellow phlegm and shortness to breath that he has had for the past 3 weeks. Patient states that his symptoms are worse when lying down at night. Patient reports subjective fevers without chills and has been taking Tylenol intermittently. Patient denies having any chest pain, lower extremity edema or discomfort, sinus pressure, otalgia or pharyngitis. Additionally, patient denies any sick contacts. [facility] Medical History Nipple pain History of ischemic cardiomyopathy History of [place] (myocardial infarction) Chronic anemia Essential hypertension Impaired fasting glucose CAD (coronary artery disease) Dyslipidemia Surgical History History of permanent cardiac pacemaker placement History of inguinal herniorrhaphy History of eye surgery History of cardiac catheterization Family History Father Myocardial infarction Daughter No problems noted. Daughter No problems noted. Sister No problems noted. Sister No problems noted. Sister No problems noted. Brother No problems noted. Brother No problems noted. Brother No problems noted. Brother No problems noted. Brother No problems noted. Brother No problems noted. Social History Household Members: Significant Other Housing: House Alcohol intake: never Patient Tobacco Use Status: Never used Tobacco e-Cigarette/Vaping Use: Never Used Second Hand Smoke Exposure: No service: No Current occupational status: retired Cognitive needs: No Hearing needs: No Vision needs: Yes Review of Systems Const All systems reviewed & are unremarkable except as noted in HPI and below Reports as per HPI, Denies body aches, Denies chills and Reports fever(s) (subjective) Eyes Reports no additional complaints ENT Reports no additional complaints, Denies otalgia, Denies sinus pain, Denies sinus pressure and Denies sore throat Card Denies chest pain, Denies rapid heart rate, Denies pedal edema, Denies leg edema, Denies lightheadedness and Reports dyspnea Resp Reports cough, Reports excessive phlegm production, Reports pain with cough, Reports dyspnea and Denies wheezing Reports no additional complaints Musc Reports no additional complaints Skin/Breast Reports system reviewed and no additional complaints, except as documented Neuro Reports no additional complaints Psych Reports no additional complaints Endo Reports no additional complaints Jose Angel/Lymph Reports no additional complaints Aller/Immun Reports no additional complaints and Denies wheezing Physical Exam Vital Signs: Last Vital Signs Temp 98.0 F 07/08/24 11:13 Pulse 72 07/08/24 11:13 BP 116/80 07/08/24 11:13 Pulse Ox 97 07/08/24 11:13 Oxygen Delivery Method Room Air 07/08/24 11:13 Const Other: Patient is afebrile General: cooperative, comfortable, no acute distress, alert and awake Nutritional Appearance: thin Orientation/consciousness: patient oriented x3 Limitations: no limitations HEENT Head: Yes normal to inspection and Yes normocephalic Ears: hearing grossly normal bilaterally, external ears normal, TM's normal bilaterally and EAC's normal General nose exam: Normal external nose present Face and sinus: Yes normal facial exam Mouth: Normal oral and palatal mucosa present and moist mucous membranes Throat: Yes posterior oropharynx normal and No postnasal drainage Eyes General: appearance normal, both eyes and all related structures Neck Lymphatic: no lymphadenopathy noted Resp Effort & Inspection: normal respiratory effort, able to speak in complete sentences, no audible wheezes and no cough Auscultation: clear to auscultation bilaterally, no crackles, no rales, no rhonchi and no wheezes Cardio Rate: regular rate Rhythm: regular rhythm Skin General skin exam: no rashes or lesions noted Neuro General: patient oriented x3 Psych Appearance: grossly normal Mental Status: mental status grossly normal Insight: Good insight present (Psych) Judgement: Good judgement present (Psych) Results Reviewed Results Reviewed: CXR: no acute finding; no pleural effusion, no consolidation Assessment & Plan Assessment & Plan (1) Acute upper respiratory infection: Comment: SARS panel is ordered and results are pending. There are no acute findings noted on chest x-ray. Code(s): J06.9 - Acute upper respiratory infection, unspecified Plan: Mucinex OTC with increase clear fluids daily. Rest as tolerated. Follow up with PCP if symptoms do not improve over the next 7-10 days. Orders: Orders XR chest 2V Today R05.9 - Cough, unspecified SARS-CoV2/FLU/RSV Today J06.9 - Acute upper respiratory infection, unspecified Coding Level of Care Code Est Pt Level 3 (59356) Diagnoses Acute upper respiratory infection J06.9 Time Spent (min) 25
== END 2024-07-08 12:20 | disposition home or self-care (01) ==
PROVIDERS: PCP Internal Medicine; Visit Provider Physician Assistant
DX: J06.9 Acute upper respiratory infection, unspecified (principal)

== ENCOUNTER 2024-07-08 10:48 | Outpatient (REF) | payer MEDICARE, MEDICAID, SELFPAY ==
--- NOTE | ~2024-07-08 | XR_ITS ---
EXAMINATION: XR CHEST CLINICAL INFORMATION: R05.9 - Cough, unspecified COMPARISON: Chest 10/22/2018 TECHNIQUE: 2 views of the chest were obtained. FINDINGS: The lungs are expanded and clear acute process. The heart size and pulmonary vascularity is normal. There are dual pacer electrodes in right atrium and right ventricle. No gross bony abnormality seen. XR/XR chest 2V IMPRESSION: Unremarkable chest examination. Electronically signed by: Dick Mart MD 07/08/2024 11:49 AM EST
[2024-07-08 14:43] LABS: Influenza A PCR NEGATIVE (Negative); Influenza B PCR NEGATIVE (Negative); Resp Syncy Virus RNA Qual PCR NEGATIVE (Negative); SARS COV2 PCR INHOUSE NEGATIVE (Negative)
== END 2024-07-08 10:49 | disposition home or self-care (01) ==
LOC: HO.HMGCX 10:48
PROVIDERS: PCP Internal Medicine; Visit Provider Physician Assistant
DX: J06.9 Acute upper respiratory infection, unspecified (principal); R05.9 Cough, unspecified
CPT/HCPCS: 0241U; 71046; 99212

== ENCOUNTER → 2024-07-08 11:30 | Outpatient (BNV) | payer MEDICARE, MEDICAID, SELFPAY | PROVIDERS: PCP Internal Medicine; Visit Provider Radiology Diagnostic Radiology | DX: R05.9 Cough, unspecified (principal) | CPT/HCPCS: 71046 ==

== ENCOUNTER 2024-08-01 09:55 | Outpatient (REF) | payer MEDICARE, MEDICAID, SELFPAY ==
[2024-08-01 13:15] LABS: MANUAL DIFF FLAG NO
[2024-08-01 13:40] LABS: Basophils Absolute Auto 0.1 X10*3/uL (0.0-0.2); Basophils Percent Auto 0.9 % (0-2); Eosinophils Absolute Auto 0.2 X10*3/uL (0.0-0.4); Eosinophils Percent Auto 2.4 % (0-4); Hematocrit 37.8 % (42.0-52.0); Hemoglobin 12.6 g/dl (14.0-18.0); Imm Gran Abs Auto 0.02 X10*3/uL (0.00-0.03); Imm Gran Pct Auto 0.3 % (0.0-0.4); Lymphocytes Absolute Auto 1.7 X10*3/uL (1.2-4.9); Lymphocytes Percent Auto 25.6 % (20-40); Mean Corpuscular HGB Conc 33.3 g/dl (31.0-36.0); Mean Corpuscular Hemoglobin 31.8 pg (27.0-33.0); Mean Corpuscular Volume 95.5 fL (80.0-98.0); Mean Platelet Volume 11.3 fL (9.4-12.4); Monocytes Absolute Auto 0.7 X10*3/uL (0.1-1.2); Monocytes Percent Auto 10.7 % (2-11); Neutrophils Percent Auto 60.1 % (45-73); Platelet Count 242 X10*3/uL (160-400); Red Blood Count 3.96 X10*6/uL (4.60-5.80); Red Cell Distribution Width 12.2 % (11.0-16.0); White Blood Count 6.7 X10*3/uL (4.8-10.8)
[2024-08-01 13:45] LABS: Estimated Average Glucose 126 mg/dL
[2024-08-01 13:53] LABS: Alanine Aminotransferase 39 U/L (0-40); Anion Gap 11 (12-20); Aspartate Amino Transferase 40 U/L (5-37); Blood Urea Nitrogen 17 mg/dL (9-16); Calcium 9.5 mg/dL (8.4-10.2); Carbon Dioxide 25 mmol/L (22-29); Chloride 107 mmol/L (96-108); Cholesterol 94 mg/dL (<200); Estimated Glomerular Filt Rate > 60; Glucose Fasting 91 mg/dL (60-99); HDL Cholesterol 31 mg/dL (>40); LDL Cholesterol Calculated 52 mg/dL (<100); Potassium 4.9 mmol/L (3.3-5.1); Sodium 138 mmol/L (135-145); Triglycerides 59 mg/dL (<150)
[2024-08-01 14:23] LABS: TSH reflex Free T4 2.08 uIU/mL (0.32-4.0); Vitamin D 25-OH Total 37.4 ng/mL (>30)
[2024-08-07 20:04] LABS: Testosterone, Free 32.4 pg/mL (30.0-135.0); Testosterone, Total 264 ng/dL (250-1100)
== END 2024-08-01 09:56 | disposition home or self-care (01) ==
LOC: HO.HMGCLDS 09:55
PROVIDERS: PCP Internal Medicine; Visit Provider Internal Medicine
DX: Z00.00 Encounter for general adult medical examination without abnormal findings (principal); E78.5 Hyperlipidemia, unspecified; I25.10 Atherosclerotic heart disease of native coronary artery without angina pectoris; R73.01 Impaired fasting glucose; I10 Essential (primary) hypertension; D64.9 Anemia, unspecified; Z95.0 Presence of cardiac pacemaker; N62 Hypertrophy of breast; N64.4 Mastodynia
CPT/HCPCS: 36415; 80048; 80061; 82306; 83036; 84402; 84403; 84443; 84450; 84460; 85025

== ENCOUNTER 2024-12-01 08:39 | Outpatient (REF) | payer MEDICARE, MEDICAID, SELFPAY ==
--- OUTSIDE RECORDS SUMMARY | 2024-12-01 09:02 | XMS_ITS | Patient Health Record ---
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 Name Role Phone Toyin MCINTOSH, Annmarie Primary Care Provider Juan Navarro [phone] Reason For Referral No Information Medications Medication SIG (Take, Route, Frequency, Duration) Notes Start Date End Date Status Metoprolol Tartrate 25 MG 1 tablet with food Orally Twice a day Active Dulcolax 5 MG 4 tablets Orally as directed for 1 days 11/28/2015 Active MiraLax 1 as directed Orally a s directed for 1 days 11/28/2015 Active Aspirin Adult Low Dose 325 mg 1 tablet Orally Once a day Active Atorvastatin Calcium 40 MG 1 tablet Oral ly Once a day Active Immunizations Vaccine Route Administration Date Status Comme nts Influenza Unknown 02/04/2015 Administered Problems Problem Type SNOMED Code ICD Code Onset Dates Problem Status W/U Status Risk Notes Problem 472059989 Encounter for screening for malignant neoplasm of colon (Z12.11) Active confirmed Problem Encounter for screening for malignant neoplasm of rectum (Z12.12) Active confirmed Problem 35720197 Preprocedural examination (Z01.818) Active confirmed Problem 277247059 Long-term use of aspirin therapy (Z79.82) Active confirmed Plan Of Treatment Future Test Test Name Order Date COLONOSCOPY 11/23/2015 Insurance Providers Payer Name Payer Address Payer Phone Subscriber Number Group Number Insured Name Patient Relationship to Insured Coverage Start Date Coverage End Date MEDICARE OF [place] [address] [place] [id number] [id number] HELENA SALAS Self - patient is the insured MEDICAID OF [facility] [address] [place] [phone] [id number] HELENA SALAS Self - patient is the insured Medical (General) History Medical History History ICD Code [place] in 2012--had 1 stent placed--Dr. Marni hall at [facility] Denies DM,CVA,Lung disease,renal disease Hyperlipidemia Surgical History Surgery Date(Month/Year) inguinal hernia repair-left 2010
[2024-12-01 10:08] LABS: MANUAL DIFF FLAG NO
[2024-12-01 10:20] LABS: Hematocrit 35.1 % (42.0-52.0); Hemoglobin 11.7 g/dl (14.0-18.0); Imm Gran Abs Auto 0.04 X10*3/uL (0.00-0.03); Imm Gran Pct Auto 0.6 % (0.0-0.4); Lymphocytes Absolute Auto 1.8 X10*3/uL (1.2-4.9); Mean Corpuscular HGB Conc 33.3 g/dl (31.0-36.0); Mean Corpuscular Hemoglobin 32.0 pg (27.0-33.0); Mean Corpuscular Volume 95.9 fL (80.0-98.0); NRBC Abs Auto 0.000 X10*3/uL (0.0-0.012); NRBC Pct Auto 0.0 /100WBC (0.0-0.2); Platelet Count 229 X10*3/uL (160-400); Red Blood Count 3.66 X10*6/uL (4.60-5.80); White Blood Count 6.7 X10*3/uL (4.8-10.8)
[2024-12-01 10:46] LABS: Alanine Aminotransferase 36 U/L (0-40); Aspartate Amino Transferase 36 U/L (5-37); Cholesterol 85 mg/dL (<200); HDL Cholesterol 30 mg/dL (>40); Iron 65 mcg/dL (45-160); Percent Iron Saturation 30 % (15-50); Total Iron Binding Capacity 220 mcg/dL (228-428); Triglycerides 71 mg/dL (<150); Unsaturated Iron Binding 155 ug/dL
== END 2024-12-01 08:40 | disposition home or self-care (01) ==
LOC: HO.HMGCLDS 08:39
PROVIDERS: PCP Internal Medicine; Visit Provider Internal Medicine
DX: I10 Essential (primary) hypertension (principal); D64.9 Anemia, unspecified; Z86.79 Personal history of other diseases of the circulatory system
CPT/HCPCS: 36415; 80061; 83540; 84450; 84460; 85025

== ENCOUNTER 2024-12-04 09:13 | Outpatient (AMB) | payer MEDICARE, MEDICAID, SELFPAY ==
--- NOTE | 2024-12-04 09:19 | A.OFFPC_ITS ---
Vital Signs 12/04/24 09:26 Height 5 ft 3 in Weight 140 lb BMI 24.8 BP 108/70 Blood Pressure Location Lt brachial Position Sitting Pulse 66 Pulse Source Pulse Oximeter Pulse Oximetry (%) 97 Intake Visit Reasons: 6 months f/up Allergies No Known Allergies Allergy (Verified 12/04/24 09:47) Medication List - Last Reconciled 12/04/24 by Annmarie Deal MD aspirin 81 mg PO DAILY atorvastatin 80 mg PO DAILY cholecalciferol (vitamin D3) (Vitamin D3) 25 mcg PO DAILY loratadine 10 mg PO DAILY metoprolol succinate ER 50 mg PO DAILY [id number] mcg (Centrum Silver Ultra Men's) 1 tab PO DAILY sacubitril-valsartan 24-26 mg (Entresto) 1 tab PO DAILY spironolactone 25 mg PO DAILY Tobacco use date assessed: 12/04/24 Fall risk assessment: No Falls in past year Last assessed Fall Risk: 12/04/24 Dental Screening Dental Screen Date: 12/04/24 Did you have a dental visit in the last 12 months?: Yes Did you have a dental problem in the last 6 months where you did not have access to dental care?: No Was dental information given to patient?: Patient has dentist HPI 6 months f/up HPI Details - The patient is a 74-year-old male pres enting for a routine follow-up and management of chronic conditions. - evaluated by hematology for chronic n ormocytic anemia. He does not have any hematinic deficiencies. No evidence of infectious etiology, acute or chronic hemolysis, underlying liver or kidney disease. Hematological workup ruled out plasma cell dyscrasia and copper deficiency. He is up-to-date on screening colonoscopy. He has no ongoing symptoms to suggest underlying malignancy.The patient has chronic normocytic anemia with no abnormalities in the bone marrow. The condition is stable with no symptoms reported. The patient had elevated ferritin levels in the past, leading to the cessation of iron supplementation. Current iron levels are normal, - Hyperlipidemia: The patient's choleste rol levels are within normal limits, currently on atorvastatin 80 mg daily, but HDL cholesterol remains low, is m ostly sedentary - Heart failure: The patient is on Entre sto and metoprolol for heart failure management, followed by cardiology with no reported chest pain or dyspnea. [facility] Medical History (Updated 12/04/24 @ 10:25 by Annmarie Deal MD) History of ischemic cardiomyopathy History of [place] (myocardial infarction) Chronic anemia Essential hypertension Impaired fasting glucose CAD (coronary artery disease) Dyslipidemia Surgical History History of permanent cardiac pacemaker placement History of inguinal herniorrhaphy History of eye surgery History of cardiac catheterization Family History Father Myocardial infarction Daughter No problems noted. Daughter No problems noted. Sister No problems noted. Sister No problems noted. Sister No problems noted. Brother No problems noted. Brother No problems noted. Brother No problems noted. Brother No problems noted. Brother No problems noted. Brother No problems noted. Social History Household Members: Significant Other Housing: House Alcohol intake: never Patient Tobacco Use Status: Never used Tobacco e-Cigarette/Vaping Use: Never Used Second Hand Smoke Exposure: No service: No Current occupational status: retired Cognitive needs: No Hearing needs: No Vision needs: Yes Questionnaire PHQ-9 Over the last 2 weeks, how often have you been bothered by any of the following problems? 1. Little interest or pleasure in doing things: not at all 2. Feeling down, depressed, or hopeless: not at all 3. Trouble falling or staying asleep, or sleeping too much: not at all 4. Feeling tired or having little energy: not at all 5. Poor appetite or overeating: not at all 6. Feeling bad about yourself - or that you are a failure or have let yourself or your family down: not at all 7. Trouble concentrating on things, such as reading the newspaper or watching television: not at all 8. Moving or speaking so slowly that other people could have noticed. Or the opposite - being so fidgety or restless that you have been moving around a lot more than usual: not at all 9. Thoughts that you would be better off or of hurting yourself in some way: not at all Total score: 0 Depression Screening Interpretation: Negative Depression Screening Done: Yes 89327 - PHQ-9 Billing: Yes Source: Developed by Drs. Juan Santoro, Janet Urias, Kervin Escalante and colleagues, with an educational missael from [employer]. Thrive Questionnaire Date Thrive assessed: 12/04/24 I am a: Patient What is your living situation today?: I have a steady place to live Within the past 12 months, did the food you bought not last and you didn't have the money to get more?: Sometimes True Within the past 12 months, did you worry whether your food would run out before you got money to buy more?: Sometimes True Do you have trouble paying for medicines?: I choose not to answer this question Do you have trouble getting transportation to medical appointments?: No Do you have trouble paying your heating and electricity bill?: Yes Do you have trouble taking care of your child, family member or friend?: I choose not to answer this question Do you have trouble with day-to-day activities such as bathing, preparing meals, shopping, managing finances, etc.?: No Are you currently unemployed and looking for a job?: No Are you interested in more education?: No Please select the resources that you would like help with: None Currently or been in a relationship where the following occur: I choose not to answer THRIVE Score: 3 AUDIT C Alcohol Use Questionnaire (AUDIT-C) 1. How often do you have a drink containing alcohol?: Never 3. How often do you have six or more drinks on one occasion?: Never Total Score: 0 Score Reviewed/Action Taken: Yes ORTIZ-7 AMB Questionnaire ORTIZ-7 Date ORTIZ - 7 assessed: 12/04/24 Feeling nervous, anxious, or on edge: 0 = Not at all Not being able to stop or control worryin = Not at all Worrying too much about different things: 0 = Not at all Trouble relaxin = Not at all Being so restless that it is hard to sit still: 0 = Not at all Becoming easily annoyed or irritable: 0 = Not at all Feeling afraid as if something awful might happen: 0 = Not at all Total ORTIZ-7 score (0-4 normal; 5-9 mild; 10-14 moderate; 15-21 severe): 0 Source: Developed by Janet Taveras, Kervin Escalante and colleagues, with an educational missael from [employer]. ORTIZ-7 Assessment Billing ORTIZ-7 Assessment Tool: ORTIZ-7 Assessment 55364 Review of Systems Const Reports as per HPI, Denies body aches, Denies chills, Denies fatigue, Denies fever(s) (subjective) and Denies frequent falls Eyes Details: sees Dr Valdez in [place] Reports no additional complaints ENT Reports no additional complaints Card Denies chest pain, Denies rapid heart rate, Denies pedal edema, Denies leg edema, Denies lightheadedness and Denies dyspnea Resp Denies cough, Denies dyspnea and Denies wheezing GI Reports no additional complaints Reports no additional complaints Musc Reports no additional complaints Skin/Breast Reports system reviewed and no additional complaints, except as documented Neuro Reports no additional complaints and Denies frequent falls Psych Reports no additional complaints Endo Reports no additional complaints and Denies fatigue Jose Angel/Lymph Reports no additional complaints Aller/Immun Reports no additional complaints and Denies wheezing Physical exam (Primary Care) Vital Signs: Last Vital Signs Pulse 66 12/04/24 09:26 BP 108/70 12/04/24 09:26 Pulse Ox 97 12/04/24 09:26 BMI result Body Mass Index 24.8 Tobacco/Smoking Status: Tobacco use Status Tobacco use date assessed 12/04/24 12/04/24 09:28 Patient Tobacco Use Status Never used Tobacco 12/04/24 09:20 e-Cigarette/Vaping Use Never Used 12/04/24 09:20 PHQ-9: PHQ-9 Score PHQ-9: Total score 0 12/04/24 09:46 Depression Screening Interpretation: Negative Thrive Assessment: Date of Thrive Assessment Date Thrive assessed 12/04/24 12/04/24 09:28 Currently or been in a relationship where the following occur: I choose not to answer Const General: comfortable and no acute distress Orientation/consciousness: patient oriented x3 HENMT Ears: external ears normal, TM's normal bilaterally and EAC's normal General nose exam: Normal external nose present Mouth: oropharynx normal and moist mucous membranes Eyes General: appearance normal, both eyes and all related structures Conjunctivae: conjunctivae normal Pupils: Equal, round and reactive pupils present EOM: EOMs intact bilaterally Neck Neck: Yes full ROM, Yes no lymphadenopathy and Yes supple Resp Effort & Inspection: normal respiratory effort and able to speak in complete sentences Auscultation: clear to auscultation bilaterally Cardio Rate: regular rate Rhythm: regular rhythm Heart sounds: S1 normal heart sound present and S2 normal heart sound present GI Inspection: Yes normal to inspection Palpation (GI): Soft to palpation, nontender and no masses Auscultation: normal bowel sounds General: Yes no CVA tenderness Back/Spine/Pelvis Back: no CVA tenderness and No back tenderness Skin General skin exam: no rashes or lesions noted Neuro General: patient oriented x3, gait normal, tone normal, moves all extremities, Normal light touch and pain sensation and no focal motor deficits Cranial nerves: Yes Equal, round and reactive pupils present Cognition (Neuro): normal cognition Gait exam (Neuro): Normal gait present Motor exam (neuro): 5/5 motor strength present throughout Extrem General: Yes full ROM, Yes no joint enlargement, Yes no clubbing, cyanosis or edema, Yes no calf tenderness and Yes normal gait Psych Appearance: grossly normal and well kempt Mental Status: mental status grossly normal Speech and movement: Normal speech and movement present Affect: normal affect Results Reviewed Results Reviewed: Name: Kelton Salas Age/Sex: 74/M : 1950 Unit#: [id number] Attend Dr: Annmarie Deal MD Re12/01/24 Status: DEP REF Location: [facility] Disch: SPEC : [id number] AKHIL: 12/01/24 STATUS: COMP REQ : [id number] RECD: 12/01/24-[address]: Annmarie Deal MD COMP: 12/01/24 ENTERED: 12/01/[address]: ORDERED: CBC Auto Diff Test Result Flag Reference WBC 6.7 4.8-10.8 X10*3/uL RBC 3.66 L 4.60-5.80 X10*6/uL HGB 11.7 L 14.0-18.0 g/dl HCT 35.1 L 42.0-52.0 % MCV 95.9 80.0-98.0 fL MCH 32.0 27.0-33.0 pg MCHC 33.3 31.0-36.0 g/dl RDW 12.2 11.0-16.0 % PLT 229 160-400 X10*3/uL MPV 11.7 9.4-12.4 fL Neut Pct Auto 58.3 45-73 % ImGran Pct Auto 0.6 H 0.0-0.4 % Lymp Pct Auto 26.8 20-40 % Winston Pct Auto 11.2 H 2-11 % Eos Pct Auto 2.4 0-4 % Baso Pct Auto 0.7 0-2 % NRBC Pct Auto 0.0 0.0-0.2 /100WBC ANC Neut Abs # 3.9 2.0-8.3 x10*3/uL ImGran Abs Auto 0.04 H 0.00-0.03 X10*3/uL Lymph Abs Auto 1.8 1.2-4.9 X10*3/uL Winston Abs Auto 0.8 0.1-1.2 X10*3/uL Eos Abs Auto 0.2 0.0-0.4 X10*3/uL Baso Abs Auto 0.1 0.0-0.2 X10*3/uL NRBC Abs Auto 0.000 0.0-0.012 X10*3/uL Name: Kelton Salas Age/Sex: 74/M : 1950 Unit#: [id number] Attend Dr: Annmarie Deal MD Re12/01/24 Status: DEP REF Location: [facility] Disch: SPEC : [id number] AKHIL: 12/01/24 STATUS: COMP REQ : [id number] RECD: 12/01/24-[address]: Annmarie Deal MD COMP: 12/01/24-1046 ENTERED: 12/01/[address]: ORDERED: IRON PROF, AST, ALT, Lipid Panel Test Result Flag Reference Iron 65 45-160 mcg/dL TIBC 220 L 228-428 mcg/dL Saturation 30 15-50 % UIBC 155 ug/dL AST (GOT) 36 5-37 U/L ALT (GPT) 36 0-40 U/L Triglyceride 71 <150 mg/dL Desirable Triglyceride: less than 150 mg/dL Borderline High Triglyceride 150-199 mg/dL High Triglyceride: 200-499 mg/dL Very High Triglyceride: greater than or equal to 5OO mg/dL Cholesterol 85 <200 mg/dL Desirable Cholesterol: less than 200 mg/dL Borderline High Cholesterol: 200-239 mg/dL High Cholesterol: greater than 239 mg/dL LDL Calculated 41 <100 mg/dL Desirable LDL: less than 100 mg/dL Near Optimal/Above Optimal LDL: 110-129 mg/dL Borderline High LDL: 130-159 mg/dL High LDL: 160-189 mg/dL Very High LDL: greater than or equal to 190 mg/dL HDL 30 L >40 mg/dL Desirable HDL: greater than 40 mg/dL Note: This HDL assay may give artificially Coding Level of Care Code Est Pt Level 4 (68337) Diagnoses Dyslipidemia E78.5 Impaired fasting glucose R73.01 Essential hypertension I10 Chronic anemia D64.9 History of ischemic cardiomyopathy Z86.79 History of permanent cardiac pacemaker placement Z95.0 Additional Codes ORTIZ-7 Assessment Billing - ORTIZ-7 Assessment Tool: ORTIZ-7 Assessment 09551 ([id number]) PHQ-9 - 52513 - PHQ-9 Billing: Yes ([id number]) Assessment & Plan Assessment & Plan (1) Dyslipidemia: Code(s): E78.5 - Hyperlipidemia, unspecified Category: Medical (2) Impaired fasting glucose: Code(s): R73.01 - Impaired fasting glucose Category: Medical (3) Essential hypertension: Code(s): I10 - Essential (primary) hypertension Category: Medical (4) Chronic anemia: Code(s): D64.9 - Anemia, unspecified Category: Medical (5) History of ischemic cardiomyopathy: Code(s): Z86.79 - Personal history of other diseases of the circulatory system Category: Medical (6) History of permanent cardiac pacemaker placement: Comment: 01/05/[address] Angel cano due to sinus bradycardia with pauses Code(s): Z95.0 - Presence of cardiac pacemaker Category: Surgical Plan The patient will continue with current medications, including atorvastatin for cholesterol management and metoprolol for blood pressure control. Aspirin dosage has been adjusted to 81 mg to minimize gastrointestinal irritation. The patient is advised to engage in regular, sustained exercise to improve HDL cholesterol levels and overall cardiovascular health. Routine blood work, including CBC, iron studies, cholesterol, electrolytes, vitamin D, and , is scheduled for July 2025 to monitor ongoing health conditions. Prostate cancer screening is planned for July as part of preventative care. Patient was informed and verbally consented to the use of an ambient scribe for clinic note documentation during this visit. Orders: Orders Complete Blood Count Auto Diff 07/18/25 D64.9 - Anemia, unspecified, E78.5 - Hyperlipidemia, unspecified, I10 - Essential (primary) hypertension, I25.10 - Atherosclerotic heart disease of [place] coronary artery without angina pectoris, R73.01 - Impaired fasting glucose, Z12.5 - Encounter for screening for malignant neoplasm of prostate, Z95.0 - Presence of cardiac pacemaker Aspartate Amino Transferase 07/18/25 D64.9 - Anemia, unspecified, E78.5 - Hyperlipidemia, unspecified, I10 - Essential (primary) hypertension, I25.10 - Atherosclerotic heart disease of [place] coronary artery without angina pectoris, R73.01 - Impaired fasting glucose, Z12.5 - Encounter for screening for malignant neoplasm of prostate, Z95.0 - Presence of cardiac pacemaker Basic Metabolic Panel Fasting 07/18/25 D64.9 - Anemia, unspecified, E78.5 - Hyperlipidemia, unspecified, I10 - Essential (primary) hypertension, I25.10 - Atherosclerotic heart disease of [place] coronary artery without angina pectoris, R73.01 - Impaired fasting glucose, Z12.5 - Encounter for screening for malignant neoplasm of prostate, Z95.0 - Presence of cardiac pacemaker Vitamin D 25-OH Total 07/18/25 D64.9 - Anemia, unspecified, E78.5 - Hyperlipidemia, unspecified, I10 - Essential (primary) hypertension, I25.10 - Atherosclerotic heart disease of [place] coronary artery without angina pectoris, R73.01 - Impaired fasting glucose, Z12.5 - Encounter for screening for malignant neoplasm of prostate, Z95.0 - Presence of cardiac pacemaker IRON PROFILE 07/18/25 D64.9 - Anemia, unspecified, E78.5 - Hyperlipidemia, unspecified, I10 - Essential (primary) hypertension, I25.10 - Atherosclerotic heart disease of [place] coronary artery without angina pectoris, R73.01 - Impaired fasting glucose, Z12.5 - Encounter for screening for malignant neoplasm of prostate, Z95.0 - Presence of cardiac pacemaker Lipid Panel 07/18/25 D64.9 - Anemia, unspecified, E78.5 - Hyperlipidemia, unspecified, I10 - Essential (primary) hypertension, I25.10 - Atherosclerotic heart disease of [place] coronary artery without angina pectoris, R73.01 - Impaired fasting glucose, Z12.5 - Encounter for screening for malignant neoplasm of prostate, Z95.0 - Presence of cardiac pacemaker Alanine Aminotransferase 07/18/25 D64.9 - Anemia, unspecified, E78.5 - Hyperlipidemia, unspecified, I10 - Essential (primary) hypertension, I25.10 - Atherosclerotic heart disease of [place] coronary artery without angina pectoris, R73.01 - Impaired fasting glucose, Z12.5 - Encounter for screening for malignant neoplasm of prostate, Z95.0 - Presence of cardiac pacemaker Vitamin B12 and Folate 07/18/25 D64.9 - Anemia, unspecified, E78.5 - Hyperlipidemia, unspecified, I10 - Essential (primary) hypertension, I25.10 - Atherosclerotic heart disease of [place] coronary artery without angina pectoris, R73.01 - Impaired fasting glucose, Z12.5 - Encounter for screening for malignant neoplasm of prostate, Z95.0 - Presence of cardiac pacemaker PSA,Total (Free>4and<10) 07/18/25 D64.9 - Anemia, unspecified, E78.5 - Hyperlipidemia, unspecified, I10 - Essential (primary) hypertension, I25.10 - Atherosclerotic heart disease of [place] coronary artery without angina pectoris, R73.01 - Impaired fasting glucose, Z12.5 - Encounter for screening for malignant neoplasm of prostate, Z95.0 - Presence of cardiac pacemaker
[2024-12-04 09:26] VITALS: BP 108/70; PULSE 66; O2SAT 97; BMI 24.8
--- OUTSIDE RECORDS SUMMARY | 2024-12-04 09:30 | XMS_ITS | Patient Health Record ---
Author Organization [facility] Address [address] [place] [address] Care Team Providers Care Environmental Services Worker Name Role Phone Toyin MCINTOSH, Annmarie Primary Care Provider Juan Navarro Unavailable [phone] Reason For Referral No Information Medications Medication [...] Problem Status W/U Status Risk Notes Problem [id number] Encounter for screening for malignant neoplasm of colon (Z12.11) Active confirmed Problem Screening for malignant neoplasm of rectum ([id number]) Encounter for screening for malignant neoplasm of rectum (Z12.12) Active confirmed Problem [id number] Preprocedural examination (Z01.818) Active confirmed Problem [id number] Long-term use of aspirin therapy (Z79.82) Active confirmed Plan Of Treatment Future Test Test Name Order Date COLONOSCOPY 11/23/2015 Insurance Providers Payer Name Payer Address Payer Phone Subscriber Number Group Number Insured Name Patient Relationship to Insured Coverage Start Date Coverage End Date MEDICARE OF [place] [address] [place] [id number] [phone] [id number] HELENA SALAS Self - patient is the insured MEDICAID OF [facility] [address] [place] [address] [id number] KANNAN ALEXEL Self - patient is the insured Medical (General) History Medical History History ICD Code MS in 2012--had 1 stent placed--[place]arn[place] [facility] [place] Den[place] DM,CVA,Lung disease,renal disease Hyperlipidemia Surgical History Surgery Date(Month/Year) inguinal hernia repair-left 2010
== END 2024-12-04 10:17 | disposition home or self-care (01) ==
LOC: HO.HMCC 09:14
PROVIDERS: PCP Internal Medicine; Visit Provider Internal Medicine
DX: E78.5 Hyperlipidemia, unspecified (principal); R73.01 Impaired fasting glucose; I10 Essential (primary) hypertension; D64.9 Anemia, unspecified; Z86.79 Personal history of other diseases of the circulatory system; Z95.0 Presence of cardiac pacemaker

== ENCOUNTER → 2024-12-04 09:13 | Outpatient (BNVA) | payer MEDICARE, MEDICAID, SELFPAY | PROVIDERS: PCP Internal Medicine; Visit Provider Internal Medicine | DX: E78.5 Hyperlipidemia, unspecified (principal); R73.01 Impaired fasting glucose; D64.9 Anemia, unspecified; Z86.79 Personal history of other diseases of the circulatory system; Z95.0 Presence of cardiac pacemaker | CPT/HCPCS: 96127; 99212 ==